=== PATIENT | female | born 1950 | race Caucasian/White ===

== ENCOUNTER 2017-11-01 11:46 | Inpatient (IN) | payer MEDICARE, OTHER ==
[~2017-11-01] VITALS: Ht 165.1 cm; Wt 105.8 kg
[~2017-11-01 11:46] MED LIST: AMLO5; AMLO5 PO; CONEST.3; CONEST.3 PO; ENAL10; ENAL10 PO; GABA300; GABA300 PO; HYDCHL25; HYDCHL25 PO; INSULANI; INSULANI SC; METF500; METF500 PO; OXYACE5T; OXYACE5T PO; PIOG15; PIOG15 PO
[2017-11-01 12:34] LABS: BASOPHILS ABSOLUTE AUTO 0.01 K/mm3 (0.00-0.23); BASOPHILS PERCENT AUTO 0 % (0-2); EOSINOPHILS ABSOLUTE AUTO 0.01 K/mm3 (0.00-0.68); EOSINOPHILS PERCENT AUTO 0 % (0-6); Hematocrit 34.4 % (33.0-51.0); Hemoglobin 10.4 g/dL (11.5-16.0); IMMATURE GRAN ABSOLUTE AUTO 0.01 K/mm3 (0.00-0.10); IMMATURE GRAN PERCENT AUTO 0 % (0-1); LYMPHOCYTES ABSOLUTE AUTO 0.82 K/mm3 (0.84-5.20); LYMPHOCYTES PERCENT AUTO 21 % (21-46); MONOCYTES PERCENT AUTO 5 % (4-13); Mean Corpuscular HGB 25.1 pg (26.0-34.0); Mean Corpuscular HGB Conc 30.2 g/dL (31.5-36.5); Mean Corpuscular Volume 83 fL (80-100); Mean Platelet Volume 10.1 fL (9.1-12.4); NEUTROPHILS ABSOLUTE AUTO 2.81 K/mm3 (1.96-9.15); NEUTROPHILS PERCENT AUTO 73 % (41-73); Platelet Count 87 K/mm3 (150-400); RDW Standard Deviation 56.7 fL (35.1-46.3); Red Blood Cell Count 4.15 M/mm3 (3.80-5.20); White Blood Cell Count 3.86 K/mm3 (4.00-11.30)
[2017-11-01 12:45] LABS: Alanine Aminotransfer (ALT/SGP 49 U/L (12-78); Albumin, Blood 3.2 g/dL (3.4-5.0); Albumin/Globulin Ratio 0.9 (0.8-1.8); Alk Phos 165 U/L (50-136); Anion Gap 7 mmol/L (6-16); Aspartate Aminotrans (AST/SGOT 54 U/L (12-37); Bilirubin, Total 0.5 mg/dL (0.1-1.0); Blood Urea Nitrogen 14 mg/dL (8-24); Bun/Creatinine Ratio 21.1 (12.0-20.0); CO2, Blood 25 mmol/L (21-32); Calcium, Blood 8.5 mg/dL (8.5-10.1); Chloride, Blood 109 mmol/L (98-108); Creatinine, Blood 0.66 mg/dL (0.40-1.00); Globulin, Blood 3.6 g/dL (2.2-4.0); Glomerular Filtration Rate >60 (60-); Glucose, Blood 76 mg/dL (70-99); Potassium, Blood 4.1 mmol/L (3.5-5.5); Sodium, Blood 141 mmol/L (136-145); Total Protein, Blood 6.8 g/dL (6.4-8.2)
[2017-11-01 13:05] LABS: International Normalized Ratio 1.15
[2017-11-01] MEDS ORDERED: LEVSOD50 PO (13:12)
[2017-11-01] MEDS ORDERED: TRIA50 PO (13:13)
[2017-11-01] MEDS ORDERED: Omeprazole20 M1 PO (13:14)
[2017-11-01] MEDS ORDERED: SIMV5 PO (13:15)
[2017-11-01] MEDS ORDERED: ROPI.25 PO (13:15)
[2017-11-01] MEDS ORDERED: BACL10 PO (13:16)
[2017-11-01] MEDS ORDERED: ELIQUIS2.5 MG PO (13:16)
[2017-11-01] MEDS ORDERED: IRON18 MG PO (13:16)
[2017-11-01] MEDS ORDERED: NYSTATIN1 EAC1 TOP (13:17)
[2017-11-01] MEDS ORDERED: DULO30 PO (13:17)
[2017-11-01 14:21] LABS: Appearance, Urine Clear (Clear); Bilirubin, Urine Neg (Neg); Blood, Urine Neg (Neg); Color, Urine Yellow (P-Yellow); Glucose Qualitative, Urine 2+ (Neg); Ketones, Urine Neg (Neg); Leukocyte Esterase, Urine Neg (Neg); Nitrite, Urine Neg (Neg); Protein, Urine Neg (Neg); Specific Gravity, Urine 1.015 (1.003-1.022); Urobilinogen, Urine NORM (Normal); pH, Urine 6.5 (5.0-8.0)
[2017-11-01 19:28] LABS: Magnesium, Blood 2.3 mg/dL (1.6-2.4); Percent Saturation 10.2 % (15.0-50.0)
[2017-11-01 19:50] LABS: Thyroid Stimulating Hormone 2.58 uIU/mL (0.360-4.800)
[2017-11-02 04:44] LABS: BASOPHILS ABSOLUTE AUTO 0.01 K/mm3 (0.00-0.23); BASOPHILS PERCENT AUTO 0 % (0-2); EOSINOPHILS ABSOLUTE AUTO 0.11 K/mm3 (0.00-0.68); EOSINOPHILS PERCENT AUTO 2 % (0-6); Hematocrit 34.1 % (33.0-51.0); Hemoglobin 10.5 g/dL (11.5-16.0); IMMATURE GRAN ABSOLUTE AUTO 0.02 K/mm3 (0.00-0.10); IMMATURE GRAN PERCENT AUTO 0 % (0-1); LYMPHOCYTES ABSOLUTE AUTO 1.44 K/mm3 (0.84-5.20); LYMPHOCYTES PERCENT AUTO 19 % (21-46); MONOCYTES ABSOLUTE AUTO 0.44 K/mm3 (0.16-1.47); MONOCYTES PERCENT AUTO 6 % (4-13); Mean Corpuscular HGB 24.5 pg (26.0-34.0); Mean Corpuscular HGB Conc 30.8 g/dL (31.5-36.5); NEUTROPHILS PERCENT AUTO 73 % (41-73); Platelet Count 116 K/mm3 (150-400); RDW Coefficient Variation 19.5 % (11.7-14.2); RDW Standard Deviation 55.2 fL (35.1-46.3); Red Blood Cell Count 4.28 M/mm3 (3.80-5.20); White Blood Cell Count 7.42 K/mm3 (4.00-11.30)
[2017-11-02 04:51] LABS: Mean Corpuscular Volume 80 fL (80-100)
[2017-11-02 05:15] LABS: Alanine Aminotransfer (ALT/SGP 42 U/L (12-78); Albumin, Blood 3.1 g/dL (3.4-5.0); Albumin/Globulin Ratio 0.9 (0.8-1.8); Alk Phos 157 U/L (50-136); Anion Gap 10 mmol/L (6-16); Aspartate Aminotrans (AST/SGOT 46 U/L (12-37); Bilirubin, Total 0.9 mg/dL (0.1-1.0); Blood Urea Nitrogen 10 mg/dL (8-24); Bun/Creatinine Ratio 13.4 (12.0-20.0); CO2, Blood 24 mmol/L (21-32); Calcium, Blood 8.5 mg/dL (8.5-10.1); Chloride, Blood 107 mmol/L (98-108); Cholesterol 108 mg/dL (50-200); Creatinine, Blood 0.74 mg/dL (0.40-1.00); Globulin, Blood 3.5 g/dL (2.2-4.0); Glomerular Filtration Rate >60 (60-); Glucose, Blood 100 mg/dL (70-99); HDL Cholesterol 53 mg/dL (>39); LDL/HDL RATIO 0.6; Low Density Lipoprotein Chol 31 mg/dL (0-110); Sodium, Blood 141 mmol/L (136-145); Total Protein, Blood 6.6 g/dL (6.4-8.2); Triglycerides 119 mg/dL (30-160); Very Low Density Lipoprot Chol 23 mg/dL (6-32)
[2017-11-02 11:29] LABS: Source, Urine Clean Catch
[2017-11-02 11:38] LABS: Appearance, Urine Clear (Clear); Bilirubin, Urine Neg (Neg); Blood, Urine Neg (Neg); Color, Urine Yellow (P-Yellow); Glucose Qualitative, Urine 1+ (Neg); Ketones, Urine Neg (Neg); Leukocyte Esterase, Urine 2+ (Neg); Nitrite, Urine Neg (Neg); Protein, Urine Neg (Neg); Urobilinogen, Urine NORM (Normal)
[2017-11-02 12:01] LABS: Other Crystals Mod /hpf
[2017-11-02 12:02] LABS: Bacteria Few /hpf; Red Blood Cells, Urine 0-2 /hpf (0-2); Squamous Epithelial Cells Few /hpf (Few)
[2017-11-03 05:47] LABS: BASOPHILS ABSOLUTE AUTO 0.02 K/mm3 (0.00-0.23); BASOPHILS PERCENT AUTO 0 % (0-2); EOSINOPHILS ABSOLUTE AUTO 0.08 K/mm3 (0.00-0.68); EOSINOPHILS PERCENT AUTO 2 % (0-6); Hematocrit 30.9 % (33.0-51.0); Hemoglobin 9.6 g/dL (11.5-16.0); IMMATURE GRAN ABSOLUTE AUTO 0.01 K/mm3 (0.00-0.10); IMMATURE GRAN PERCENT AUTO 0 % (0-1); LYMPHOCYTES ABSOLUTE AUTO 1.41 K/mm3 (0.84-5.20); LYMPHOCYTES PERCENT AUTO 30 % (21-46); MONOCYTES ABSOLUTE AUTO 0.37 K/mm3 (0.16-1.47); MONOCYTES PERCENT AUTO 8 % (4-13); Mean Corpuscular HGB 24.8 pg (26.0-34.0); Mean Corpuscular HGB Conc 31.1 g/dL (31.5-36.5); Mean Corpuscular Volume 80 fL (80-100); Mean Platelet Volume 9.8 fL (9.1-12.4); NEUTROPHILS ABSOLUTE AUTO 2.85 K/mm3 (1.96-9.15); NEUTROPHILS PERCENT AUTO 60 % (41-73); Platelet Count 80 K/mm3 (150-400); RDW Coefficient Variation 19.4 % (11.7-14.2); RDW Standard Deviation 55.5 fL (35.1-46.3); Red Blood Cell Count 3.87 M/mm3 (3.80-5.20); White Blood Cell Count 4.74 K/mm3 (4.00-11.30)
[2017-11-03 06:01] LABS: Anion Gap 7 mmol/L (6-16); Blood Urea Nitrogen 12 mg/dL (8-24); Bun/Creatinine Ratio 13.1 (12.0-20.0); CO2, Blood 26 mmol/L (21-32); Calcium, Blood 8.2 mg/dL (8.5-10.1); Chloride, Blood 108 mmol/L (98-108); Creatinine, Blood 0.92 mg/dL (0.40-1.00); Glomerular Filtration Rate >60 (60-); Glucose, Blood 88 mg/dL (70-99); Potassium, Blood 4.1 mmol/L (3.5-5.5); Sodium, Blood 141 mmol/L (136-145)
[2017-11-04 08:44] LABS: Albumin, Blood 2.9 g/dL (3.4-5.0); Albumin/Globulin Ratio 0.9 (0.8-1.8); Bilirubin, Direct 0.2 mg/dL (0.0-0.3); Bilirubin, Indirect 0.4 mg/dL (0.1-0.7); Bilirubin, Total 0.6 mg/dL (0.1-1.0); Globulin, Blood 3.2 g/dL (2.2-4.0); Total Protein, Blood 6.1 g/dL (6.4-8.2)
[2017-11-05 05:46] LABS: BASOPHILS ABSOLUTE AUTO 0.01 K/mm3 (0.00-0.23); BASOPHILS PERCENT AUTO 0 % (0-2); EOSINOPHILS ABSOLUTE AUTO 0.08 K/mm3 (0.00-0.68); EOSINOPHILS PERCENT AUTO 2 % (0-6); Hematocrit 32.7 % (33.0-51.0); Hemoglobin 10.3 g/dL (11.5-16.0); IMMATURE GRAN ABSOLUTE AUTO 0.01 K/mm3 (0.00-0.10); IMMATURE GRAN PERCENT AUTO 0 % (0-1); LYMPHOCYTES PERCENT AUTO 26 % (21-46); MONOCYTES ABSOLUTE AUTO 0.38 K/mm3 (0.16-1.47); MONOCYTES PERCENT AUTO 8 % (4-13); Mean Corpuscular HGB 24.8 pg (26.0-34.0); Mean Corpuscular HGB Conc 31.5 g/dL (31.5-36.5); Mean Corpuscular Volume 79 fL (80-100); Mean Platelet Volume 10.2 fL (9.1-12.4); NEUTROPHILS ABSOLUTE AUTO 2.88 K/mm3 (1.96-9.15); NEUTROPHILS PERCENT AUTO 63 % (41-73); Platelet Count 101 K/mm3 (150-400); RDW Standard Deviation 53.3 fL (35.1-46.3); Red Blood Cell Count 4.16 M/mm3 (3.80-5.20); White Blood Cell Count 4.56 K/mm3 (4.00-11.30)
[2017-11-05 06:15] LABS: Alanine Aminotransfer (ALT/SGP 31 U/L (12-78); Albumin/Globulin Ratio 0.8 (0.8-1.8); Alk Phos 158 U/L (50-136); Anion Gap 7 mmol/L (6-16); Aspartate Aminotrans (AST/SGOT 28 U/L (12-37); Bilirubin, Total 0.6 mg/dL (0.1-1.0); Blood Urea Nitrogen 14 mg/dL (8-24); Bun/Creatinine Ratio 16.3 (12.0-20.0); CO2, Blood 26 mmol/L (21-32); Calcium, Blood 8.7 mg/dL (8.5-10.1); Chloride, Blood 104 mmol/L (98-108); Creatinine, Blood 0.86 mg/dL (0.40-1.00); Globulin, Blood 3.6 g/dL (2.2-4.0); Glomerular Filtration Rate >60 (60-); Glucose, Blood 194 mg/dL (70-99); Potassium, Blood 4.2 mmol/L (3.5-5.5); Sodium, Blood 137 mmol/L (136-145); Total Protein, Blood 6.6 g/dL (6.4-8.2)
[2017-11-06 05:29] LABS: BASOPHILS ABSOLUTE AUTO 0.01 K/mm3 (0.00-0.23); BASOPHILS PERCENT AUTO 0 % (0-2); EOSINOPHILS ABSOLUTE AUTO 0.08 K/mm3 (0.00-0.68); EOSINOPHILS PERCENT AUTO 1 % (0-6); Hematocrit 31.6 % (33.0-51.0); Hemoglobin 10.1 g/dL (11.5-16.0); IMMATURE GRAN ABSOLUTE AUTO 0.01 K/mm3 (0.00-0.10); IMMATURE GRAN PERCENT AUTO 0 % (0-1); LYMPHOCYTES ABSOLUTE AUTO 1.16 K/mm3 (0.84-5.20); LYMPHOCYTES PERCENT AUTO 20 % (21-46); MONOCYTES ABSOLUTE AUTO 0.46 K/mm3 (0.16-1.47); MONOCYTES PERCENT AUTO 8 % (4-13); Mean Corpuscular HGB 24.8 pg (26.0-34.0); Mean Corpuscular Volume 78 fL (80-100); Mean Platelet Volume 9.6 fL (9.1-12.4); NEUTROPHILS ABSOLUTE AUTO 4.13 K/mm3 (1.96-9.15); NEUTROPHILS PERCENT AUTO 71 % (41-73); Platelet Count 94 K/mm3 (150-400); RDW Coefficient Variation 18.6 % (11.7-14.2); RDW Standard Deviation 52.1 fL (35.1-46.3); Red Blood Cell Count 4.07 M/mm3 (3.80-5.20); White Blood Cell Count 5.85 K/mm3 (4.00-11.30)
[2017-11-06 05:50] LABS: Alanine Aminotransfer (ALT/SGP 30 U/L (12-78); Albumin, Blood 3.2 g/dL (3.4-5.0); Alk Phos 166 U/L (50-136); Anion Gap 9 mmol/L (6-16); Aspartate Aminotrans (AST/SGOT 24 U/L (12-37); Bilirubin, Total 0.5 mg/dL (0.1-1.0); Blood Urea Nitrogen 16 mg/dL (8-24); Bun/Creatinine Ratio 16.9 (12.0-20.0); CO2, Blood 25 mmol/L (21-32); Calcium, Blood 8.7 mg/dL (8.5-10.1); Chloride, Blood 103 mmol/L (98-108); Creatinine, Blood 0.94 mg/dL (0.40-1.00); Globulin, Blood 3.3 g/dL (2.2-4.0); Glomerular Filtration Rate >60 (60-); Glucose, Blood 120 mg/dL (70-99); Sodium, Blood 137 mmol/L (136-145); Total Protein, Blood 6.5 g/dL (6.4-8.2)
[2017-11-08 05:32] LABS: Hematocrit 31.2 % (33.0-51.0); Hemoglobin 9.7 g/dL (11.5-16.0); Mean Corpuscular HGB 25.1 pg (26.0-34.0); Mean Corpuscular HGB Conc 31.1 g/dL (31.5-36.5); Mean Platelet Volume 10.2 fL (9.1-12.4); Platelet Count 89 K/mm3 (150-400); RDW Standard Deviation 55.6 fL (35.1-46.3); Red Blood Cell Count 3.86 M/mm3 (3.80-5.20)
[2017-11-08 05:46] LABS: Anion Gap 7 mmol/L (6-16); Blood Urea Nitrogen 15 mg/dL (8-24); Bun/Creatinine Ratio 21.8 (12.0-20.0); CO2, Blood 27 mmol/L (21-32); Calcium, Blood 8.6 mg/dL (8.5-10.1); Chloride, Blood 103 mmol/L (98-108); Creatinine, Blood 0.69 mg/dL (0.40-1.00); Glomerular Filtration Rate >60 (60-); Glucose, Blood 167 mg/dL (70-99); Potassium, Blood 4.2 mmol/L (3.5-5.5); Sodium, Blood 137 mmol/L (136-145)
[2017-11-08 06:01] LABS: Mean Corpuscular Volume 81 fL (80-100)
[2017-11-08] MEDS ORDERED: ARTIFICIAL TEAR15 ML RIGHTEYE (11:43)
[2017-11-08] MEDS ORDERED: CALCIUM WITH V1 EACH PO (11:44)
[2017-11-08] MEDS ORDERED: INSDET100 SC (11:45)
[2017-11-08] MEDS ORDERED: Novolog100 UNIT/2 SC (11:46)
[2017-11-08] MEDS ORDERED: LOSA50 PO (11:46)
[2017-11-08] MEDS ORDERED: PROBIOTIC1 EACH PO (11:48)
[2017-11-09 07:14] LABS: HBSAG SCREEN Negative (Negative); HEP A AB, IGM Negative (Negative); HEP B CORE AB, IGM Negative (Negative); HEP C VIRUS AB <0.1 (0.0-0.9)
[2017-11-09 11:07] LABS: HBSAG SCREEN Negative (Negative); HEP A AB, IGM Negative (Negative); HEP B CORE AB, TOT Negative (Negative); HEP C VIRUS AB <0.1 (0.0-0.9)
[2017-11-11 08:19] LABS: FREE INSULIN 16 uU/mL (.); TOTAL INSULIN 19 uU/mL (.)
== END 2017-11-08 15:01 | DRG 638 ==
LOC: ER 11:46 → MEDS 11:47 → ER 17:09 → MEDS 17:09 → ENPENDDIS 11-08 11:00 → MEDS 11-08 15:01
PROVIDERS: Emergency Medicine; Internal Medicine
DX: E11.649 Type 2 diabetes mellitus with hypoglycemia without coma (principal); N39.0 Urinary tract infection, site not specified; M80.08XA Age-related osteoporosis with current pathological fracture, vertebra(e), initial encounter for fracture; D61.818 Other pancytopenia; Z79.4 Long term (current) use of insulin; H10.9 Unspecified conjunctivitis; I10 Essential (primary) hypertension; E03.9 Hypothyroidism, unspecified; D64.9 Anemia, unspecified; R01.1 Cardiac murmur, unspecified; K74.60 Unspecified cirrhosis of liver; B96.20 Unspecified Escherichia coli [E. coli] as the cause of diseases classified elsewhere; B96.1 Klebsiella pneumoniae [K. pneumoniae] as the cause of diseases classified elsewhere; I35.0 Nonrheumatic aortic (valve) stenosis; R19.7 Diarrhea, unspecified; H10.31 Unspecified acute conjunctivitis, right eye; E78.5 Hyperlipidemia, unspecified
CPT/HCPCS: 36415; 70450; 71046; 73502; 74177; 80048; 80053; 80061; 80074; 80076; 81001; 81003; 82140; 82607; 82728; 82746; 82947; 83036; 83525; 83527; 83540; 83550; 83735; 83880; 84443; 85025; 85027; 85610; 85651; 86704; 86708; 86803; 87077; 87086; 87186; 87340; 87493; 93005; 93010; 93306; 96361; 96365; 96366; 96374; 96375; 96376; 97110; 97116; 97161; 97530; 99285; G0378; G8978; G8979; J0360; J0696; J1815; J2185; J2916; J7030; J7070; J7120; P9612; Q9967

== ENCOUNTER 2017-11-09 17:21 | Day surgery (SDC) | END 2017-11-09 18:43 | disposition home or self-care (01) ==

== ENCOUNTER 2018-01-10 12:53 | Observation (INO) | payer MEDICARE, OTHER ==
[~2018-01-10] VITALS: Ht 152.4 cm; Wt 95.0 kg
[~2018-01-10 12:53] MED LIST changes: +ARTIFICIAL TEAR15 ML RIGHTEYE; +BACL10 PO; +CALCIUM WITH V1 EACH PO; +DULO60 PO; +ELIQUIS2.5 MG PO; +Ferrous Sulfat325 M2 PO; +INSDET100 SC; +LEVSOD50 PO; +LOSA50 PO; +NYSTATIN1 EAC1 TOP; +Novolog100 UNIT/2 SC; +Omeprazole20 M1 PO; +PROBIOTIC1 EACH PO; +ROPI.25 PO; +SIMV5 PO; +TRIA50 PO
[2018-01-10 15:07] LABS: BASOPHILS ABSOLUTE AUTO 0.01 K/mm3 (0.00-0.23); BASOPHILS PERCENT AUTO 0 % (0-2); EOSINOPHILS ABSOLUTE AUTO 0.05 K/mm3 (0.00-0.68); EOSINOPHILS PERCENT AUTO 1 % (0-6); Hematocrit 33.1 % (33.0-51.0); Hemoglobin 10.3 g/dL (11.5-16.0); IMMATURE GRAN ABSOLUTE AUTO 0.01 K/mm3 (0.00-0.10); IMMATURE GRAN PERCENT AUTO 0 % (0-1); LYMPHOCYTES ABSOLUTE AUTO 1.26 K/mm3 (0.84-5.20); LYMPHOCYTES PERCENT AUTO 34 % (21-46); MONOCYTES ABSOLUTE AUTO 0.26 K/mm3 (0.16-1.47); MONOCYTES PERCENT AUTO 7 % (4-13); Mean Corpuscular HGB 26.5 pg (26.0-34.0); Mean Corpuscular HGB Conc 31.1 g/dL (31.5-36.5); Mean Corpuscular Volume 85 fL (80-100); Mean Platelet Volume 10.6 fL (9.1-12.4); NEUTROPHILS ABSOLUTE AUTO 2.09 K/mm3 (1.96-9.15); NEUTROPHILS PERCENT AUTO 57 % (41-73); Platelet Count 123 K/mm3 (150-400); RDW Coefficient Variation 16.6 % (11.7-14.2); RDW Standard Deviation 50.4 fL (35.1-46.3); Red Blood Cell Count 3.88 M/mm3 (3.80-5.20); White Blood Cell Count 3.68 K/mm3 (4.00-11.30)
[2018-01-10] MEDS ORDERED: Simvastatin20 MG PO (15:15)
[2018-01-10] MEDS ORDERED: GABA300 PO (15:17)
[2018-01-10] MEDS ORDERED: BACL10 PO (15:17)
[2018-01-10 15:24] LABS: Alanine Aminotransfer (ALT/SGP 29 U/L (12-78); Albumin, Blood 3.6 g/dL (3.4-5.0); Albumin/Globulin Ratio 0.9 (0.8-1.8); Alk Phos 164 U/L (50-136); Anion Gap 7 mmol/L (6-16); Aspartate Aminotrans (AST/SGOT 31 U/L (12-37); Bilirubin, Total 0.4 mg/dL (0.1-1.0); Blood Urea Nitrogen 20 mg/dL (8-24); Bun/Creatinine Ratio 21.5 (12.0-20.0); CO2, Blood 27 mmol/L (21-32); Calcium, Blood 8.6 mg/dL (8.5-10.1); Chloride, Blood 107 mmol/L (98-108); Creatinine, Blood 0.93 mg/dL (0.40-1.00); Globulin, Blood 3.8 g/dL (2.2-4.0); Glomerular Filtration Rate >60 (60-); Glucose, Blood 113 mg/dL (70-99); Potassium, Blood 4.1 mmol/L (3.5-5.5); Sodium, Blood 141 mmol/L (136-145); Total Protein, Blood 7.4 g/dL (6.4-8.2)
[2018-01-11 04:43] LABS: BASOPHILS ABSOLUTE AUTO 0.01 K/mm3 (0.00-0.23); BASOPHILS PERCENT AUTO 0 % (0-2); EOSINOPHILS ABSOLUTE AUTO 0.06 K/mm3 (0.00-0.68); EOSINOPHILS PERCENT AUTO 2 % (0-6); Hematocrit 31.2 % (33.0-51.0); Hemoglobin 9.8 g/dL (11.5-16.0); IMMATURE GRAN ABSOLUTE AUTO 0.01 K/mm3 (0.00-0.10); IMMATURE GRAN PERCENT AUTO 0 % (0-1); LYMPHOCYTES ABSOLUTE AUTO 1.09 K/mm3 (0.84-5.20); LYMPHOCYTES PERCENT AUTO 35 % (21-46); MONOCYTES ABSOLUTE AUTO 0.29 K/mm3 (0.16-1.47); MONOCYTES PERCENT AUTO 9 % (4-13); Mean Corpuscular HGB 26.9 pg (26.0-34.0); Mean Corpuscular HGB Conc 31.4 g/dL (31.5-36.5); Mean Corpuscular Volume 86 fL (80-100); Mean Platelet Volume 10.6 fL (9.1-12.4); NEUTROPHILS ABSOLUTE AUTO 1.67 K/mm3 (1.96-9.15); NEUTROPHILS PERCENT AUTO 53 % (41-73); Platelet Count 107 K/mm3 (150-400); RDW Coefficient Variation 16.3 % (11.7-14.2); RDW Standard Deviation 50.8 fL (35.1-46.3); Red Blood Cell Count 3.64 M/mm3 (3.80-5.20); White Blood Cell Count 3.13 K/mm3 (4.00-11.30)
[2018-01-11 05:01] LABS: Anion Gap 8 mmol/L (6-16); Blood Urea Nitrogen 17 mg/dL (8-24); Bun/Creatinine Ratio 19.7 (12.0-20.0); CO2, Blood 27 mmol/L (21-32); Calcium, Blood 8.3 mg/dL (8.5-10.1); Chloride, Blood 105 mmol/L (98-108); Creatinine, Blood 0.86 mg/dL (0.40-1.00); Glomerular Filtration Rate >60 (60-); Glucose, Blood 247 mg/dL (70-99); Potassium, Blood 4.2 mmol/L (3.5-5.5); Sodium, Blood 140 mmol/L (136-145)
[2018-01-11] MEDS ORDERED: CEPH500 PO (11:59)
[2018-01-11] MEDS ORDERED: ACET325 PO (11:59)
== END 2018-01-11 14:45 | disposition home or self-care (01) ==
LOC: ER 12:53 → MEDS 12:54
PROVIDERS: Emergency Medicine; Hospitalist
DX: E10.628 Type 1 diabetes mellitus with other skin complications (principal); L03.115 Cellulitis of right lower limb; E03.9 Hypothyroidism, unspecified; D64.9 Anemia, unspecified; I10 Essential (primary) hypertension; E78.5 Hyperlipidemia, unspecified; E10.42 Type 1 diabetes mellitus with diabetic polyneuropathy; D50.9 Iron deficiency anemia, unspecified
CPT/HCPCS: 36415; 73590; 80048; 80053; 82947; 83605; 85025; 85651; 86140; 87040; 87070; 87075; 87077; 87147; 87186; 87205; 96365; 96372; 96376; 99284; G0378; J0690; J1650; J7030

== ENCOUNTER → 2018-02-03 | Outpatient (CLI) | payer MEDICARE, OTHER ==
[~2018-02-03] MED LIST changes: +ACET325 PO; +CEPH500 PO; +Simvastatin20 MG PO
== END ==
LOC: LAB 12:35 → LAB SHORT 12:35
DX: L03.116 Cellulitis of left lower limb (principal); S82.292D Other fracture of shaft of left tibia, subsequent encounter for closed fracture with routine healing
CPT/HCPCS: 87070; 87075; 87077; 87147; 87186; 87205

== ENCOUNTER 2018-02-12 18:08 | Emergency (ER) | payer MEDICARE, OTHER ==
[~2018-02-12] VITALS: Ht 152.4 cm; Wt 70.3 kg
[~2018-02-12 18:08] MED LIST changes: +Augmentin 875-1 EACH PO; +INSR10I SC; +LEVEMIR FL100 UNIT/1 SC
[2018-02-12] MEDS ORDERED: ELIQUIS2.5 MG (20:02)
== END 2018-02-12 20:05 | disposition home or self-care (01) ==
LOC: ER 18:08
DX: T81.89XA Other complications of procedures, not elsewhere classified, initial encounter (principal); E11.9 Type 2 diabetes mellitus without complications; Z88.8 Allergy status to other drugs, medicaments and biological substances; Z79.899 Other long term (current) drug therapy; Z79.4 Long term (current) use of insulin
CPT/HCPCS: 99282

== ENCOUNTER 2018-02-28 15:00 | Inpatient (IN) | payer MEDICARE, OTHER ==
[~2018-02-28] VITALS: Ht 160 cm; Wt 99.4 kg
[~2018-02-28 15:00] MED LIST changes: +ELIQUIS5 MG PO
[2018-02-28] MEDS ORDERED: ROPI2 PO (15:44)
[2018-02-28] MEDS ORDERED: ELIQUIS2.5 MG PO (15:44)
[2018-02-28] MEDS ORDERED: LOSA50 PO (15:44)
[2018-02-28] MEDS ORDERED: LEVSOD75 PO (15:47)
[2018-02-28] MEDS ORDERED: FAMO20 (15:48)
[2018-02-28] MEDS ORDERED: BACL10 PO (15:48)
[2018-02-28] MEDS ORDERED: BACL10 (15:49)
[2018-02-28 16:02] LABS: BASOPHILS ABSOLUTE AUTO 0.02 K/mm3 (0.00-0.23); BASOPHILS PERCENT AUTO 0 % (0-2); EOSINOPHILS ABSOLUTE AUTO 0.01 K/mm3 (0.00-0.68); EOSINOPHILS PERCENT AUTO 0 % (0-6); Hematocrit 32.5 % (33.0-51.0); Hemoglobin 10.5 g/dL (11.5-16.0); IMMATURE GRAN ABSOLUTE AUTO 0.06 K/mm3 (0.00-0.10); IMMATURE GRAN PERCENT AUTO 1 % (0-1); LYMPHOCYTES ABSOLUTE AUTO 0.66 K/mm3 (0.84-5.20); LYMPHOCYTES PERCENT AUTO 7 % (21-46); MONOCYTES ABSOLUTE AUTO 0.63 K/mm3 (0.16-1.47); MONOCYTES PERCENT AUTO 6 % (4-13); Mean Corpuscular HGB 27.3 pg (26.0-34.0); Mean Corpuscular HGB Conc 32.3 g/dL (31.5-36.5); Mean Corpuscular Volume 84 fL (80-100); Mean Platelet Volume 11.3 fL (9.1-12.4); NEUTROPHILS PERCENT AUTO 86 % (41-73); Platelet Count 90 K/mm3 (150-400); RDW Coefficient Variation 15.5 % (11.7-14.2); RDW Standard Deviation 47.1 fL (35.1-46.3); Red Blood Cell Count 3.85 M/mm3 (3.80-5.20); White Blood Cell Count 9.98 K/mm3 (4.00-11.30)
[2018-02-28 16:13] LABS: International Normalized Ratio 1.25; Prothrombin Time Results 12.7 Sec (9.7-11.5)
[2018-02-28 16:15] LABS: Alanine Aminotransfer (ALT/SGP 42 U/L (12-78); Albumin/Globulin Ratio 1.1 (0.8-1.8); Alk Phos 150 U/L (50-136); Anion Gap 8 mmol/L (6-16); Aspartate Aminotrans (AST/SGOT 43 U/L (12-37); Blood Urea Nitrogen 29 mg/dL (8-24); Bun/Creatinine Ratio 26.6 (12.0-20.0); CO2, Blood 26 mmol/L (21-32); Calcium, Blood 8.8 mg/dL (8.5-10.1); Chloride, Blood 95 mmol/L (98-108); Creatinine, Blood 1.09 mg/dL (0.40-1.00); Ethanol (Alcohol), Blood, Med <3 mg/dL; Globulin, Blood 3.8 g/dL (2.2-4.0); Glomerular Filtration Rate 53 (60-); Glucose, Blood 234 mg/dL (70-99); Sodium, Blood 129 mmol/L (136-145); Total Protein, Blood 7.8 g/dL (6.4-8.2)
[2018-02-28 17:29] LABS: U Amphetamine Screen Not Detected; U Barbituate Screen Not Detected; U Benzodiazapine Screen Not Detected; U Buprenorphine Screen Not Detected; U Cannabinoids Screen Not Detected; U Cocaine Screen Not Detected; U Methadone Screen Not Detected; U Methamphetamine Screen Not Detected; U Opiates Screen Not Detected; U Oxycodone Screen Not Detected; U Phencyclidine Screen Not Detected; U Propoxyphene Screen Not Detected
[2018-02-28] MEDS ORDERED: Nystatin15 GM TOP (23:07)
[2018-02-28] MEDS ORDERED: POTCHL20ER (23:08)
[2018-02-28] MEDS ORDERED: TRIAMTERENE HCTZ (23:08)
[2018-02-28] MEDS ORDERED: ONE TOUCH VERI1 EAC6 (23:09)
[2018-02-28] MEDS ORDERED: OMEPRAZOLE DR 20 MG (23:09)
[2018-02-28] MEDS ORDERED: Amox Tr-K Clv1 EAC2 PO (23:09)
[2018-02-28] MEDS ORDERED: CLON.5 (23:10)
[2018-02-28] MEDS ORDERED: Ferrous Sulfat325 MG (23:10)
[2018-02-28] MEDS ORDERED: CEPH500 (23:11)
[2018-02-28] MEDS ORDERED: INSU100I6 (23:11)
[2018-02-28] MEDS ORDERED: INSULANPEN (23:12)
[2018-02-28] MEDS ORDERED: Glucagon Emergen1 MG (23:12)
[2018-03-01 05:23] LABS: BASOPHILS ABSOLUTE AUTO 0.01 K/mm3 (0.00-0.23); BASOPHILS PERCENT AUTO 0 % (0-2); EOSINOPHILS PERCENT AUTO 0 % (0-6); Hematocrit 28.1 % (33.0-51.0); Hemoglobin 9.5 g/dL (11.5-16.0); IMMATURE GRAN ABSOLUTE AUTO 0.03 K/mm3 (0.00-0.10); IMMATURE GRAN PERCENT AUTO 1 % (0-1); LYMPHOCYTES ABSOLUTE AUTO 0.88 K/mm3 (0.84-5.20); LYMPHOCYTES PERCENT AUTO 13 % (21-46); MONOCYTES PERCENT AUTO 8 % (4-13); Mean Corpuscular HGB 27.4 pg (26.0-34.0); Mean Corpuscular HGB Conc 33.8 g/dL (31.5-36.5); NEUTROPHILS ABSOLUTE AUTO 5.18 K/mm3 (1.96-9.15); NEUTROPHILS PERCENT AUTO 78 % (41-73); RDW Coefficient Variation 15.8 % (11.7-14.2); RDW Standard Deviation 46.5 fL (35.1-46.3); Red Blood Cell Count 3.47 M/mm3 (3.80-5.20)
[2018-03-01 05:33] LABS: Calcium, Blood 7.6 mg/dL (8.5-10.1); Creatinine, Blood 1.16 mg/dL (0.40-1.00); Potassium, Blood 4.5 mmol/L (3.5-5.5)
[2018-03-01 05:45] LABS: Mean Platelet Volume 11.9 fL (9.1-12.4); Platelet Count 63 K/mm3 (150-400)
[2018-03-01 05:46] LABS: Mean Corpuscular Volume 81 fL (80-100)
[2018-03-01 10:22] LABS: Source, Urine Catheter
[2018-03-01 10:29] LABS: Bilirubin, Urine Neg (Neg); Blood, Urine 3+ (Neg); Glucose Qualitative, Urine 1+ (Neg); Ketones, Urine Neg (Neg); Leukocyte Esterase, Urine 3+ (Neg); Nitrite, Urine Neg (Neg); Protein, Urine 1+ (Neg); Urobilinogen, Urine NORM (Normal)
[2018-03-01 10:53] LABS: Appearance, Urine Hazy (Clear); Color, Urine Yellow (P-Yellow)
[2018-03-01 10:54] LABS: Squamous Epithelial Cells Mod /hpf (Few); White Blood Cells, Urine 25-50 /hpf (0-5)
[2018-03-01 10:55] LABS: Bacteria Few /hpf; Red Blood Cells, Urine 25-50 /hpf (0-2)
[2018-03-02 05:04] LABS: Hematocrit 27.7 % (33.0-51.0); Hemoglobin 9.1 g/dL (11.5-16.0); Mean Corpuscular HGB 28.2 pg (26.0-34.0); Mean Corpuscular HGB Conc 32.9 g/dL (31.5-36.5); Mean Platelet Volume 11.5 fL (9.1-12.4); Platelet Count 70 K/mm3 (150-400); RDW Coefficient Variation 15.5 % (11.7-14.2); RDW Standard Deviation 48.7 fL (35.1-46.3); Red Blood Cell Count 3.23 M/mm3 (3.80-5.20); White Blood Cell Count 5.42 K/mm3 (4.00-11.30)
[2018-03-02 05:17] LABS: Mean Corpuscular Volume 86 fL (80-100)
[2018-03-02 05:21] LABS: Calcium, Blood 7.7 mg/dL (8.5-10.1); Potassium, Blood 4.1 mmol/L (3.5-5.5)
[2018-03-02 05:47] LABS: BAND PERCENT MAN 17 % (0-8); BASOPHILS ABSOLUTE MAN 0.05 K/mm3 (0.00-0.23); BASOPHILS PERCENT MAN 1 % (0-2); EOSINOPHILS ABSOLUTE MAN 0.05 K/mm3 (0.00-0.68); EOSINOPHILS PERCENT MAN 1 % (0-6); LYMPHOCYTES ABSOLUTE MAN 0.75 K/mm3 (0.84-5.20); LYMPHOCYTES PERCENT MAN 14 % (21-46); MONOCYTES ABSOLUTE MAN 0.16 K/mm3 (0.16-1.47); MONOCYTES PERCENT MAN 3 % (4-13); NEUTROPHILS ABSOLUTE MAN 4.39 K/mm3 (1.96-9.15); SEG NEUTROPHILS PERCENT MAN 64 % (41-73); TOTAL CELLS COUNTED 100
[2018-03-02 16:12] LABS: Sodium, Urine, Random 62 mmol/L (20-110)
[2018-03-02 21:41] LABS: Osmolality, Urine 537 mos/kg (15-1400)
[2018-03-03 04:55] LABS: BASOPHILS ABSOLUTE AUTO 0.02 K/mm3 (0.00-0.23); BASOPHILS PERCENT AUTO 1 % (0-2); EOSINOPHILS ABSOLUTE AUTO 0.08 K/mm3 (0.00-0.68); EOSINOPHILS PERCENT AUTO 2 % (0-6); Hematocrit 27.5 % (33.0-51.0); Hemoglobin 9.1 g/dL (11.5-16.0); IMMATURE GRAN ABSOLUTE AUTO 0.01 K/mm3 (0.00-0.10); IMMATURE GRAN PERCENT AUTO 0 % (0-1); LYMPHOCYTES ABSOLUTE AUTO 1.35 K/mm3 (0.84-5.20); LYMPHOCYTES PERCENT AUTO 30 % (21-46); MONOCYTES PERCENT AUTO 11 % (4-13); Mean Corpuscular HGB 27.5 pg (26.0-34.0); Mean Corpuscular HGB Conc 33.1 g/dL (31.5-36.5); Mean Platelet Volume 11.4 fL (9.1-12.4); NEUTROPHILS ABSOLUTE AUTO 2.48 K/mm3 (1.96-9.15); NEUTROPHILS PERCENT AUTO 56 % (41-73); Platelet Count 72 K/mm3 (150-400); RDW Coefficient Variation 15.1 % (11.7-14.2); RDW Standard Deviation 46.6 fL (35.1-46.3); Red Blood Cell Count 3.31 M/mm3 (3.80-5.20); White Blood Cell Count 4.44 K/mm3 (4.00-11.30)
[2018-03-03 05:03] LABS: Mean Corpuscular Volume 83 fL (80-100)
[2018-03-03 05:33] LABS: Anion Gap 7 mmol/L (6-16); Blood Urea Nitrogen 18 mg/dL (8-24); Bun/Creatinine Ratio 19.3 (12.0-20.0); CO2, Blood 27 mmol/L (21-32); Calcium, Blood 8.2 mg/dL (8.5-10.1); Chloride, Blood 98 mmol/L (98-108); Creatinine, Blood 0.93 mg/dL (0.40-1.00); Glomerular Filtration Rate >60 (60-); Glucose, Blood 201 mg/dL (70-99); Sodium, Blood 132 mmol/L (136-145)
[2018-03-03 05:48] LABS: Osmolality, Serum 282 mos/KG (275-300)
== END 2018-03-03 16:00 | disposition home health service (06) | DRG 871 ==
LOC: ER 15:00 → ERHOLD 18:12 → MEDS 21:00 → ENPENDDIS 03-03 07:13 → EDPENDDIS 03-03 07:13 → MEDS 03-03 16:00
PROVIDERS: Internal Medicine; Physician Assistant
DX: A41.9 Sepsis, unspecified organism (principal); J18.9 Pneumonia, unspecified organism; G92 Toxic encephalopathy; E87.1 Hypo-osmolality and hyponatremia; N39.0 Urinary tract infection, site not specified; L03.116 Cellulitis of left lower limb; D64.9 Anemia, unspecified; K74.60 Unspecified cirrhosis of liver; Z74.09 Other reduced mobility; I10 Essential (primary) hypertension; E03.9 Hypothyroidism, unspecified; E78.5 Hyperlipidemia, unspecified; K21.9 Gastro-esophageal reflux disease without esophagitis; E11.40 Type 2 diabetes mellitus with diabetic neuropathy, unspecified; R65.20 Severe sepsis without septic shock; Z88.8 Allergy status to other drugs, medicaments and biological substances; Z79.4 Long term (current) use of insulin; Z79.899 Other long term (current) drug therapy
CPT/HCPCS: 36415; 51702; 70450; 71045; 73502; 80048; 80053; 81001; 82140; 82947; 83605; 83930; 83935; 84145; 84300; 85025; 85610; 87086; 93005; 93010; 96361; 96365; 96375; 99285-25; C9113; G0480; J0696; J1885; J1956; J3480; J7030; J7040

== ENCOUNTER 2018-03-04 14:43 | Emergency (ER) | payer MEDICARE, OTHER ==
[~2018-03-04] VITALS: Ht 152.4 cm; Wt 88.5 kg
[~2018-03-04 14:43] MED LIST changes: +Amox Tr-K Clv1 EAC2 PO; +BACL10; +CEPH500; +CLON.5; +FAMO20; +Ferrous Sulfat325 MG; +Glucagon Emergen1 MG; +INSU100I6; +INSULANPEN; +LEVSOD75 PO; +Nystatin15 GM TOP; +OMEPRAZOLE DR 20 MG; +ONE TOUCH VERI1 EAC6; +POTCHL20ER; +ROPI2 PO; +TRIAMTERENE HCTZ
== END 2018-03-04 16:00 | disposition home or self-care (01) ==
LOC: ER 14:43
DX: Z48.01 Encounter for change or removal of surgical wound dressing (principal); E11.9 Type 2 diabetes mellitus without complications; Z88.8 Allergy status to other drugs, medicaments and biological substances; Z79.899 Other long term (current) drug therapy; Z79.4 Long term (current) use of insulin; Z79.01 Long term (current) use of anticoagulants
CPT/HCPCS: 99282

== ENCOUNTER 2018-03-09 10:35 | Emergency (ER) | payer MEDICARE, OTHER ==
[~2018-03-09] VITALS: Ht 152.4 cm; Wt 88.5 kg
[~2018-03-09 10:35] MED LIST changes: -ELIQUIS5 MG PO
[2018-03-09 12:35] LABS: Alanine Aminotransfer (ALT/SGP 29 U/L (12-78); Albumin, Blood 3.4 g/dL (3.4-5.0); Albumin/Globulin Ratio 0.9 (0.8-1.8); Alk Phos 151 U/L (50-136); Anion Gap 9 mmol/L (6-16); Aspartate Aminotrans (AST/SGOT 40 U/L (12-37); Blood Urea Nitrogen 17 mg/dL (8-24); Bun/Creatinine Ratio 19.9 (12.0-20.0); CO2, Blood 25 mmol/L (21-32); Calcium, Blood 8.1 mg/dL (8.5-10.1); Chloride, Blood 98 mmol/L (98-108); Creatinine, Blood 0.86 mg/dL (0.40-1.00); Globulin, Blood 3.8 g/dL (2.2-4.0); Glomerular Filtration Rate >60 (60-); Glucose, Blood 320 mg/dL (70-99); Potassium, Blood 5.3 mmol/L (3.5-5.5); Sodium, Blood 132 mmol/L (136-145); Total Protein, Blood 7.2 g/dL (6.4-8.2)
[2018-03-09 12:52] LABS: BASOPHILS ABSOLUTE AUTO 0.03 K/mm3 (0.00-0.23); BASOPHILS PERCENT AUTO 0 % (0-2); EOSINOPHILS ABSOLUTE AUTO 0.03 K/mm3 (0.00-0.68); EOSINOPHILS PERCENT AUTO 0 % (0-6); Hematocrit 31.1 % (33.0-51.0); Hemoglobin 9.5 g/dL (11.5-16.0); IMMATURE GRAN ABSOLUTE AUTO 0.04 K/mm3 (0.00-0.10); IMMATURE GRAN PERCENT AUTO 1 % (0-1); LYMPHOCYTES ABSOLUTE AUTO 1.06 K/mm3 (0.84-5.20); LYMPHOCYTES PERCENT AUTO 14 % (21-46); MONOCYTES ABSOLUTE AUTO 0.59 K/mm3 (0.16-1.47); MONOCYTES PERCENT AUTO 8 % (4-13); Mean Corpuscular HGB Conc 30.5 g/dL (31.5-36.5); NEUTROPHILS ABSOLUTE AUTO 5.81 K/mm3 (1.96-9.15); NEUTROPHILS PERCENT AUTO 77 % (41-73); Platelet Count 125 K/mm3 (150-400); RDW Coefficient Variation 15.4 % (11.7-14.2); RDW Standard Deviation 48.8 fL (35.1-46.3); Red Blood Cell Count 3.52 M/mm3 (3.80-5.20); White Blood Cell Count 7.56 K/mm3 (4.00-11.30)
[2018-03-09 12:53] LABS: Mean Corpuscular Volume 88 fL (80-100)
[2018-03-09 14:25] LABS: Source, Urine Clean Catch
[2018-03-09 14:35] LABS: Appearance, Urine Clear (Clear); Bilirubin, Urine Neg (Neg); Blood, Urine Neg (Neg); Color, Urine Yellow (P-Yellow); Glucose Qualitative, Urine 4+ (Neg); Ketones, Urine Neg (Neg); Leukocyte Esterase, Urine Neg (Neg); Nitrite, Urine Neg (Neg); Protein, Urine 1+ (Neg); Specific Gravity, Urine 1.015 (1.003-1.022); Urobilinogen, Urine NORM (Normal)
== END 2018-03-09 18:39 | disposition home or self-care (01) ==
LOC: ER 10:35
PROVIDERS: Emergency Medicine
DX: E11.65 Type 2 diabetes mellitus with hyperglycemia (principal); D64.9 Anemia, unspecified; E87.1 Hypo-osmolality and hyponatremia; Z88.8 Allergy status to other drugs, medicaments and biological substances; Z79.899 Other long term (current) drug therapy; Z79.4 Long term (current) use of insulin
CPT/HCPCS: 36415; 80053; 85025; 99285; P9612

== ENCOUNTER 2018-03-13 08:58 | Emergency (ER) | payer MEDICARE, OTHER ==
[~2018-03-13] VITALS: Ht 152.4 cm; Wt 86.2 kg
[2018-03-13] MEDS ORDERED: BACL10 PO (09:10)
[2018-03-13] MEDS ORDERED: Dyazide 37.5-21 EACH PO (09:12)
[2018-03-13] MEDS ORDERED: POTCHL20ER PO (09:16)
[2018-03-13] MEDS ORDERED: FAMO20 PO (09:18)
[2018-03-13] MEDS ORDERED: GABA300 PO (09:19)
[2018-03-13] MEDS ORDERED: Ferrous Sulfat325 M2 PO (09:19)
[2018-03-13] MEDS ORDERED: TRAM50 PO (09:20)
[2018-03-13] MEDS ORDERED: CLON.5 PO (09:20)
[2018-03-13 11:19] LABS: BASOPHILS ABSOLUTE AUTO 0.04 K/mm3 (0.00-0.23); BASOPHILS PERCENT AUTO 0 % (0-2); EOSINOPHILS PERCENT AUTO 1 % (0-6); Hematocrit 29.7 % (33.0-51.0); Hemoglobin 9.5 g/dL (11.5-16.0); IMMATURE GRAN ABSOLUTE AUTO 0.03 K/mm3 (0.00-0.10); IMMATURE GRAN PERCENT AUTO 0 % (0-1); LYMPHOCYTES ABSOLUTE AUTO 1.21 K/mm3 (0.84-5.20); LYMPHOCYTES PERCENT AUTO 11 % (21-46); MONOCYTES ABSOLUTE AUTO 0.63 K/mm3 (0.16-1.47); MONOCYTES PERCENT AUTO 6 % (4-13); Mean Corpuscular HGB 27.5 pg (26.0-34.0); Mean Corpuscular Volume 86 fL (80-100); Mean Platelet Volume 10.5 fL (9.1-12.4); NEUTROPHILS PERCENT AUTO 82 % (41-73); Platelet Count 133 K/mm3 (150-400); RDW Coefficient Variation 15.7 % (11.7-14.2); RDW Standard Deviation 48.7 fL (35.1-46.3); Red Blood Cell Count 3.46 M/mm3 (3.80-5.20); White Blood Cell Count 11.11 K/mm3 (4.00-11.30)
[2018-03-13 11:32] LABS: International Normalized Ratio 1.19; Prothrombin Time Results 12.1 Sec (9.7-11.5)
[2018-03-13 11:46] LABS: Albumin, Blood 2.9 g/dL (3.4-5.0); Albumin/Globulin Ratio 0.8 (0.8-1.8); Bilirubin, Total 0.5 mg/dL (0.1-1.0); Bun/Creatinine Ratio 18.6 (12.0-20.0); Calcium, Blood 7.9 mg/dL (8.5-10.1); Creatinine, Blood 1.4 mg/dL (0.40-1.00); Globulin, Blood 3.6 g/dL (2.2-4.0); Potassium, Blood 4.8 mmol/L (3.5-5.5); Total Protein, Blood 6.5 g/dL (6.4-8.2)
[2018-03-17] MEDS ORDERED: LEVSOD88 PO (12:56)
[2018-03-17] MEDS ORDERED: NYST100000 (13:00)
[2018-03-17] MEDS ORDERED: SACC250C (13:01)
[2018-03-17] MEDS ORDERED: VANC125 PO (13:03)
[2018-03-17] MEDS ORDERED: Humalog100 UNIT/1 (13:04)
== END 2018-03-13 14:10 | disposition home or self-care (01) ==
LOC: ER 08:58
PROVIDERS: Nurse Practitioner Family
DX: R53.1 Weakness (principal); E11.9 Type 2 diabetes mellitus without complications; E03.9 Hypothyroidism, unspecified; K21.9 Gastro-esophageal reflux disease without esophagitis; E87.6 Hypokalemia; Z88.8 Allergy status to other drugs, medicaments and biological substances; Z79.899 Other long term (current) drug therapy; Z79.4 Long term (current) use of insulin; Z79.01 Long term (current) use of anticoagulants
CPT/HCPCS: 36415; 70450; 80053; 82947; 85025; 85610; 93005; 93010; 96360; 99284-25; J7030

== ENCOUNTER 2018-06-16 14:48 | Day surgery (SDC) | payer MEDICARE, OTHER ==
[~2018-06-16 14:48] MED LIST changes: +CEFAZOLIN2 GM/50 ML IV; +CHOL10002 PO; +CLON.5 PO; +CULTURELLE PRO1 EACH PO; +Dyazide 37.5-21 EACH PO; +ELIQUIS5 MG PO; +FAMO20 PO; +FURO40 PO; +Humalog100 UNIT/1; +INSULANPEN SC; +LEVSOD100 PO; +NYST100000; +POTCHL10ER PO; +Pedi-Dri 100,0060 GM TOP; +SACC250C; +TRAM50 PO; +TYLENOL325 MG PO; +VANC125 PO
[2018-06-16] MEDS ORDERED: BUME1 PO (19:24)
[2018-06-16] MEDS ORDERED: BUME2 PO (19:25)
[2018-06-16] MEDS ORDERED: LOSA50 PO (19:26)
[2018-06-16] MEDS ORDERED: HYDR1TAB94 PO (19:29)
== END 2018-06-16 22:42 | disposition home or self-care (01) ==
LOC: WOUND 14:48
DX: E11.621 Type 2 diabetes mellitus with foot ulcer (principal); L97.401 Non-pressure chronic ulcer of unspecified heel and midfoot limited to breakdown of skin; L97.822 Non-pressure chronic ulcer of other part of left lower leg with fat layer exposed; D50.9 Iron deficiency anemia, unspecified; E11.22 Type 2 diabetes mellitus with diabetic chronic kidney disease; I12.0 Hypertensive chronic kidney disease with stage 5 chronic kidney disease or end stage renal disease; N18.6 End stage renal disease; G62.9 Polyneuropathy, unspecified

== ENCOUNTER 2018-06-16 19:00 | Emergency (ER) | payer MEDICARE, OTHER ==
[~2018-06-16] VITALS: Ht 152.4 cm; Wt 104.3 kg
[2018-06-16] MEDS ORDERED: BUME1 PO (19:24)
[2018-06-16] MEDS ORDERED: BUME2 PO (19:25)
[2018-06-16] MEDS ORDERED: LOSA50 PO (19:26)
[2018-06-16] MEDS ORDERED: HYDR1TAB94 PO (19:29)
== END 2018-06-16 21:49 | disposition home or self-care (01) ==
LOC: ER 19:00
DX: S00.83XA Contusion of other part of head, initial encounter (principal); W06.XXXA Fall from bed, initial encounter; Z88.8 Allergy status to other drugs, medicaments and biological substances; Z79.899 Other long term (current) drug therapy; Z79.4 Long term (current) use of insulin; E11.9 Type 2 diabetes mellitus without complications
CPT/HCPCS: 70450; 72125; 99284-25

== ENCOUNTER 2018-07-04 00:12 | Day surgery (SDC) | payer MEDICARE, OTHER ==
[~2018-07-04 00:12] MED LIST changes: +BUME1 PO; +BUME2 PO; +HYDR1TAB94 PO
== END 2018-07-04 23:00 | disposition home or self-care (01) ==
LOC: WOUND 00:12
DX: E11.621 Type 2 diabetes mellitus with foot ulcer (principal); L97.401 Non-pressure chronic ulcer of unspecified heel and midfoot limited to breakdown of skin; L97.822 Non-pressure chronic ulcer of other part of left lower leg with fat layer exposed; D50.9 Iron deficiency anemia, unspecified; I10 Essential (primary) hypertension
CPT/HCPCS: G0463

== ENCOUNTER 2018-07-11 09:40 | Day surgery (SDC) | payer MEDICARE, OTHER | END 2018-07-11 22:46 | disposition home or self-care (01) | LOC: WOUND 09:40 | DX: E11.621 Type 2 diabetes mellitus with foot ulcer (principal); L97.512 Non-pressure chronic ulcer of other part of right foot with fat layer exposed; L97.822 Non-pressure chronic ulcer of other part of left lower leg with fat layer exposed; D50.9 Iron deficiency anemia, unspecified; E11.22 Type 2 diabetes mellitus with diabetic chronic kidney disease; I12.0 Hypertensive chronic kidney disease with stage 5 chronic kidney disease or end stage renal disease; N18.6 End stage renal disease; G62.9 Polyneuropathy, unspecified; Z79.4 Long term (current) use of insulin | CPT/HCPCS: 87070; 87077; 87147; 87186; 87205 ==

== ENCOUNTER 2018-07-18 08:50 | Day surgery (SDC) | payer MEDICARE, OTHER | END 2018-07-18 22:44 | disposition home or self-care (01) | LOC: WOUND 08:50 | PROC: 0HBLXZZ Excision of Left Lower Leg Skin, External Approach (ICD-10-PCS; principal; 2018-07-18) | DX: E11.622 Type 2 diabetes mellitus with other skin ulcer (principal); L97.822 Non-pressure chronic ulcer of other part of left lower leg with fat layer exposed; I10 Essential (primary) hypertension; D50.9 Iron deficiency anemia, unspecified ==

== ENCOUNTER 2018-09-27 10:18 | Observation (INO) | payer MEDICARE, OTHER ==
[~2018-09-27] VITALS: Ht 152.4 cm; Wt 106.6 kg
[~2018-09-27 10:18] MED LIST changes: -POTCHL10ER PO; -Pedi-Dri 100,0060 GM TOP
[2018-09-27] MEDS ORDERED: INSDET100 SC ×2 (11:00→12:36)
[2018-09-27] MEDS ORDERED: CLOT10 SS (11:00)
[2018-09-27] MEDS ORDERED: HYDACE25S PR (11:00)
[2018-09-27] MEDS ORDERED: BUME2 PO ×2 (11:01→12:27)
[2018-09-27] MEDS ORDERED: LEVSOD112 PO (11:01)
[2018-09-27] MEDS ORDERED: DULO60 PO (11:01)
[2018-09-27] MEDS ORDERED: ELIQUIS2.5 MG PO (11:02)
[2018-09-27] MEDS ORDERED: LOSA50 PO (11:02)
[2018-09-27] MEDS ORDERED: CHOL10002 PO (11:02)
[2018-09-27 11:35] LABS: BASOPHILS ABSOLUTE AUTO 0.02 K/mm3 (0.00-0.23); BASOPHILS PERCENT AUTO 0 % (0-2); EOSINOPHILS ABSOLUTE AUTO 0.06 K/mm3 (0.00-0.68); EOSINOPHILS PERCENT AUTO 1 % (0-6); Hematocrit 30.7 % (33.0-51.0); Hemoglobin 9.2 g/dL (11.5-16.0); IMMATURE GRAN ABSOLUTE AUTO 0.02 K/mm3 (0.00-0.10); IMMATURE GRAN PERCENT AUTO 0 % (0-1); LYMPHOCYTES ABSOLUTE AUTO 1.01 K/mm3 (0.84-5.20); LYMPHOCYTES PERCENT AUTO 20 % (21-46); MONOCYTES ABSOLUTE AUTO 0.36 K/mm3 (0.16-1.47); MONOCYTES PERCENT AUTO 7 % (4-13); Mean Corpuscular HGB 28.9 pg (26.0-34.0); Mean Corpuscular Volume 97 fL (80-100); Mean Platelet Volume 11.8 fL (9.1-12.4); NEUTROPHILS ABSOLUTE AUTO 3.49 K/mm3 (1.96-9.15); NEUTROPHILS PERCENT AUTO 70 % (41-73); Platelet Count 103 K/mm3 (150-400); RDW Coefficient Variation 15.9 % (11.7-14.2); RDW Standard Deviation 56.2 fL (35.1-46.3); Red Blood Cell Count 3.18 M/mm3 (3.80-5.20); White Blood Cell Count 4.96 K/mm3 (4.00-11.30)
[2018-09-27 11:48] LABS: International Normalized Ratio 1.21; Prothrombin Time Results 12.6 Sec (9.7-11.5)
[2018-09-27 11:53] LABS: Albumin/Globulin Ratio 0.9 (0.8-1.8); Bilirubin, Total 0.7 mg/dL (0.1-1.0); Bun/Creatinine Ratio 36.6 (12.0-20.0); Calcium, Blood 9.1 mg/dL (8.5-10.1); Creatinine, Blood 1.61 mg/dL (0.40-1.00); Globulin, Blood 4.4 g/dL (2.2-4.0); Potassium, Blood 5.8 mmol/L (3.5-5.5); Total Protein, Blood 8.4 g/dL (6.4-8.2)
[2018-09-27] MEDS ORDERED: FAMO20 PO ×2 (12:00→12:51)
[2018-09-27] MEDS ORDERED: GABA300 PO (12:01)
[2018-09-27] MEDS ORDERED: BACL10 PO ×2 (12:01→12:42)
[2018-09-27] MEDS ORDERED: FERRO-TIME325 MG PO (12:01)
[2018-09-27] MEDS ORDERED: Zocor20 MG PO (12:02)
[2018-09-27] MEDS ORDERED: ROPI.25 PO (12:02)
[2018-09-27] MEDS ORDERED: Clotrimazole15 GM TOP (12:29)
[2018-09-27] MEDS ORDERED: POTCHL10ER PO ×2 (12:40→12:41)
[2018-09-27] MEDS ORDERED: TRAM50 PO (12:44)
[2018-09-27] MEDS ORDERED: COUGH PO (12:45)
[2018-09-27] MEDS ORDERED: ACET325 PO (12:45)
[2018-09-27] MEDS ORDERED: BISA10S PR (12:47)
[2018-09-27] MEDS ORDERED: ENEMA BOTTLE1 EACH PO (12:48)
[2018-09-27] MEDS ORDERED: Milk Of Ma400 MG/5 M PO (12:49)
[2018-09-27] MEDS ORDERED: BISM87SU PO (12:49)
[2018-09-27] MEDS ORDERED: Inzo Antifun141.7 GM TOP (12:50)
[2018-09-27] MEDS ORDERED: Pedi-Dri 100,0060 GM TOP (12:52)
[2018-09-27 14:40] LABS: Hematocrit 30.2 % (33.0-51.0); Hemoglobin 9.6 g/dL (11.5-16.0); Mean Corpuscular HGB 29.1 pg (26.0-34.0); Mean Corpuscular HGB Conc 31.8 g/dL (31.5-36.5); Mean Platelet Volume 10.9 fL (9.1-12.4); Platelet Count 113 K/mm3 (150-400); RDW Standard Deviation 53.4 fL (35.1-46.3); White Blood Cell Count 5.08 K/mm3 (4.00-11.30)
[2018-09-27 14:41] LABS: Mean Corpuscular Volume 92 fL (80-100)
--- NOTE | 2018-09-27 19:15 | NUR ---
SHIFT SUMMARY PT ALERT AND ORIENTED. VS STABLE. PROTONIX GTT DISCONTINUED. NS INFUSING PER ORDERS. PT HAS HAD TWO INCONTINENT LIQUID BROWN BM. PT INCONTINENT OF BLADDER. WOUNDS TO BILATERAL LOWER EXTREMITIES DRESSED AND PICTURES TAKEN. LEGS ELEVATED ON PILLOWS. PT HAS BEEN REPOSITIONED Q2H. REPORT GIVEN TO MILLINER HELPER RN.
[2018-09-28 04:23] LABS: Bun/Creatinine Ratio 38.4 (12.0-20.0); Calcium, Blood 8.6 mg/dL (8.5-10.1); Creatinine, Blood 1.38 mg/dL (0.40-1.00); Magnesium, Blood 2.7 mg/dL (1.6-2.4)
[2018-09-28 04:57] LABS: BASOPHILS ABSOLUTE AUTO 0.02 K/mm3 (0.00-0.23); BASOPHILS PERCENT AUTO 1 % (0-2); EOSINOPHILS ABSOLUTE AUTO 0.12 K/mm3 (0.00-0.68); EOSINOPHILS PERCENT AUTO 3 % (0-6); Hemoglobin 9.5 g/dL (11.5-16.0); IMMATURE GRAN ABSOLUTE AUTO 0.01 K/mm3 (0.00-0.10); IMMATURE GRAN PERCENT AUTO 0 % (0-1); LYMPHOCYTES PERCENT AUTO 31 % (21-46); MONOCYTES PERCENT AUTO 10 % (4-13); Mean Corpuscular HGB 28.8 pg (26.0-34.0); Mean Corpuscular HGB Conc 30.6 g/dL (31.5-36.5); Mean Corpuscular Volume 94 fL (80-100); NEUTROPHILS ABSOLUTE AUTO 2.14 K/mm3 (1.96-9.15); NEUTROPHILS PERCENT AUTO 55 % (41-73); Platelet Count 104 K/mm3 (150-400); RDW Coefficient Variation 15.9 % (11.7-14.2); RDW Standard Deviation 54.4 fL (35.1-46.3); White Blood Cell Count 3.89 K/mm3 (4.00-11.30)
--- NOTE | 2018-09-28 05:32 | NUR ---
SHIFT SUMMARY PT A&O X4. LUNG SOUNDS COARSE T/O. SPO2 > 92% ON RA. MONITOR SHOW NSR, HR 60-100. VSS. NO SIGNS OF BLEEDING. NO BM'S THIS SHIFT. PT INCONTINENT OF URINE. PRN SHANTELLE CARE/ATTENDS CHANGES PROVIDED. DRESSINGS TO BLE WOUNDS C/D/I. WILL CONTINUE TO MONITOR AND PROVIDE CARE UNTIL REPORT OFF TO DAY SHIFT RN.
--- NOTE | 2018-09-28 12:01 | NUR ---
DR MARROQUIN TO SEE PATIENT. HE IS PLANNING TO D/C PATIENT HOME TO [facility] TODAY. CALLED [facility] TO SCHEDULE TRANSPORT.
[2018-09-28] MEDS ORDERED: Humalog100 UNIT/3 SC (12:46)
--- NOTE | 2018-09-28 16:26 | NUR ---
PT D/C VIA [email or web address].
== END 2018-09-28 16:24 | disposition home or self-care (01) ==
LOC: ER 10:18 → PCU 10:19 → ER 12:04 → PCU 12:04
PROVIDERS: Emergency Medicine; ADMIT Internal Medicine
DX: K64.9 Unspecified hemorrhoids (principal); N17.9 Acute kidney failure, unspecified; E86.0 Dehydration; I48.0 Paroxysmal atrial fibrillation; E13.42 Other specified diabetes mellitus with diabetic polyneuropathy; E13.22 Other specified diabetes mellitus with diabetic chronic kidney disease; N18.9 Chronic kidney disease, unspecified; E03.9 Hypothyroidism, unspecified; F32.9 Major depressive disorder, single episode, unspecified; E66.01 Morbid (severe) obesity due to excess calories; Z79.899 Other long term (current) drug therapy; Z79.02 Long term (current) use of antithrombotics/antiplatelets; Z79.4 Long term (current) use of insulin; Z88.8 Allergy status to other drugs, medicaments and biological substances; Z68.42 Body mass index [BMI] 45.0-49.9, adult
CPT/HCPCS: 36415; 71045; 80048; 80053; 82272; 82947; 83735; 85025; 85027; 85610; 85730; 86850; 86900; 86901; 93005; 93010; 96365; 96366; 97162; 97530; 99285-25; C9113; G0378; J7030; J7040

== ENCOUNTER 2018-10-04 11:55 | Day surgery (SDC) | payer MEDICARE, OTHER ==
[~2018-10-04 11:55] MED LIST changes: +BISA10S PR; +BISM87SU PO; +CLOT10 SS; +COUGH PO; +Clotrimazole15 GM TOP; +ENEMA BOTTLE1 EACH PO; +FERRO-TIME325 MG PO; +HYDACE25S PR; +Humalog100 UNIT/3 SC; +Inzo Antifun141.7 GM TOP; +LEVSOD112 PO; +Milk Of Ma400 MG/5 M PO; +POTCHL10ER PO; +Pedi-Dri 100,0060 GM TOP; +Zocor20 MG PO
== END 2018-10-04 22:50 | disposition home or self-care (01) ==
LOC: WOUND
DX: E11.622 Type 2 diabetes mellitus with other skin ulcer (principal); L97.822 Non-pressure chronic ulcer of other part of left lower leg with fat layer exposed; L89.623 Pressure ulcer of left heel, stage 3; L89.611 Pressure ulcer of right heel, stage 1; I10 Essential (primary) hypertension; E11.621 Type 2 diabetes mellitus with foot ulcer; D50.9 Iron deficiency anemia, unspecified
CPT/HCPCS: G0463

== ENCOUNTER 2018-10-27 00:31 | Day surgery (SDC) | payer MEDICARE, OTHER | END 2018-10-27 23:14 | disposition home or self-care (01) | LOC: WOUND 00:31 | DX: E11.622 Type 2 diabetes mellitus with other skin ulcer (principal); L97.821 Non-pressure chronic ulcer of other part of left lower leg limited to breakdown of skin; L89.623 Pressure ulcer of left heel, stage 3; L89.619 Pressure ulcer of right heel, unspecified stage; E11.40 Type 2 diabetes mellitus with diabetic neuropathy, unspecified; I12.0 Hypertensive chronic kidney disease with stage 5 chronic kidney disease or end stage renal disease; E11.22 Type 2 diabetes mellitus with diabetic chronic kidney disease; N18.6 End stage renal disease; D50.9 Iron deficiency anemia, unspecified; E66.9 Obesity, unspecified ==

== ENCOUNTER 2018-10-31 13:48 | Day surgery (SDC) | payer MEDICARE, OTHER | END 2018-10-31 22:55 | disposition home or self-care (01) | LOC: WOUND 13:48 | DX: E11.622 Type 2 diabetes mellitus with other skin ulcer (principal); L97.822 Non-pressure chronic ulcer of other part of left lower leg with fat layer exposed; L89.623 Pressure ulcer of left heel, stage 3; L89.611 Pressure ulcer of right heel, stage 1; E11.40 Type 2 diabetes mellitus with diabetic neuropathy, unspecified; I12.0 Hypertensive chronic kidney disease with stage 5 chronic kidney disease or end stage renal disease; E11.22 Type 2 diabetes mellitus with diabetic chronic kidney disease; N18.6 End stage renal disease; D50.9 Iron deficiency anemia, unspecified; E66.9 Obesity, unspecified ==

== ENCOUNTER 2018-11-07 13:44 | Day surgery (SDC) | payer MEDICARE, OTHER | END 2018-11-07 23:07 | disposition home or self-care (01) | LOC: WOUND 13:44 | DX: E11.622 Type 2 diabetes mellitus with other skin ulcer (principal); L97.822 Non-pressure chronic ulcer of other part of left lower leg with fat layer exposed; L89.893 Pressure ulcer of other site, stage 3; L89.623 Pressure ulcer of left heel, stage 3; L89.611 Pressure ulcer of right heel, stage 1; I12.9 Hypertensive chronic kidney disease with stage 1 through stage 4 chronic kidney disease, or unspecified chronic kidney disease; E11.22 Type 2 diabetes mellitus with diabetic chronic kidney disease; N18.6 End stage renal disease; E11.40 Type 2 diabetes mellitus with diabetic neuropathy, unspecified; D50.9 Iron deficiency anemia, unspecified; E66.9 Obesity, unspecified; Z68.43 Body mass index [BMI] 50.0-59.9, adult ==

== ENCOUNTER 2018-11-14 00:21 | Day surgery (SDC) | payer MEDICARE, OTHER | END 2018-11-14 22:59 | disposition home or self-care (01) | LOC: WOUND 00:21 | DX: E11.622 Type 2 diabetes mellitus with other skin ulcer (principal); L97.822 Non-pressure chronic ulcer of other part of left lower leg with fat layer exposed; L89.623 Pressure ulcer of left heel, stage 3; L89.611 Pressure ulcer of right heel, stage 1; E11.40 Type 2 diabetes mellitus with diabetic neuropathy, unspecified; I12.0 Hypertensive chronic kidney disease with stage 5 chronic kidney disease or end stage renal disease; E11.22 Type 2 diabetes mellitus with diabetic chronic kidney disease; N18.6 End stage renal disease; D50.9 Iron deficiency anemia, unspecified; E66.9 Obesity, unspecified | CPT/HCPCS: G0463 ==

== ENCOUNTER 2018-11-21 14:38 | Day surgery (SDC) | payer MEDICARE, OTHER ==
[~2018-11-21 14:38] MED LIST changes: -BISA10S PR; -Inzo Antifun141.7 GM TOP; -LEVSOD112 PO; +LEVSOD125 PO
== END 2018-11-21 23:23 | disposition home or self-care (01) ==
LOC: WOUND 14:38
DX: E11.622 Type 2 diabetes mellitus with other skin ulcer (principal); L97.822 Non-pressure chronic ulcer of other part of left lower leg with fat layer exposed; L89.623 Pressure ulcer of left heel, stage 3; L89.611 Pressure ulcer of right heel, stage 1; E11.621 Type 2 diabetes mellitus with foot ulcer; L97.522 Non-pressure chronic ulcer of other part of left foot with fat layer exposed; I10 Essential (primary) hypertension

== ENCOUNTER 2018-11-27 08:36 | Inpatient (IN) | payer MEDICARE, OTHER ==
[~2018-11-27] VITALS: Ht 152.4 cm; Wt 114.3 kg
[2018-11-27] MEDS ORDERED: PANT40 PO (09:13)
[2018-11-27 10:16] LABS: BASOPHILS ABSOLUTE AUTO 0.02 K/mm3 (0.00-0.23); BASOPHILS PERCENT AUTO 1 % (0-2); EOSINOPHILS ABSOLUTE AUTO 0.04 K/mm3 (0.00-0.68); EOSINOPHILS PERCENT AUTO 1 % (0-6); Hemoglobin 8.1 g/dL (11.5-16.0); IMMATURE GRAN ABSOLUTE AUTO 0.02 K/mm3 (0.00-0.10); IMMATURE GRAN PERCENT AUTO 1 % (0-1); LYMPHOCYTES ABSOLUTE AUTO 1.08 K/mm3 (0.84-5.20); LYMPHOCYTES PERCENT AUTO 25 % (21-46); MONOCYTES ABSOLUTE AUTO 0.42 K/mm3 (0.16-1.47); MONOCYTES PERCENT AUTO 10 % (4-13); Mean Corpuscular HGB 22.8 pg (26.0-34.0); Mean Corpuscular HGB Conc 28.9 g/dL (31.5-36.5); Mean Corpuscular Volume 79 fL (80-100); Mean Platelet Volume 11.4 fL (9.1-12.4); NEUTROPHILS PERCENT AUTO 63 % (41-73); Platelet Count 87 K/mm3 (150-400); Red Blood Cell Count 3.55 M/mm3 (3.80-5.20); White Blood Cell Count 4.28 K/mm3 (4.00-11.30)
[2018-11-27 10:38] LABS: Alanine Aminotransfer (ALT/SGP 24 U/L (12-78); Albumin, Blood 3.9 g/dL (3.4-5.0); Alk Phos 104 U/L (50-136); Anion Gap 7 mmol/L (6-16); Aspartate Aminotrans (AST/SGOT 25 U/L (12-37); Bilirubin, Total 0.7 mg/dL (0.1-1.0); Blood Urea Nitrogen 28 mg/dL (8-24); CO2, Blood 29 mmol/L (21-32); Calcium, Blood 8.7 mg/dL (8.5-10.1); Chloride, Blood 103 mmol/L (98-108); Creatinine, Blood 1.22 mg/dL (0.40-1.00); Globulin, Blood 3.8 g/dL (2.2-4.0); Glomerular Filtration Rate 47 (60-); Glucose, Blood 177 mg/dL (70-99); Sodium, Blood 139 mmol/L (136-145); Total Protein, Blood 7.7 g/dL (6.4-8.2); Troponin I <0.015 ng/mL (0.000-0.040)
[2018-11-27] MEDS ORDERED: TRAM50 PO (12:59)
[2018-11-27] MEDS ORDERED: ACET325 PO (12:59)
[2018-11-27] MEDS ORDERED: Inzo Antifun141.7 GM TOP ×2 (13:00→13:02)
[2018-11-27] MEDS ORDERED: BISA10S PR (13:00)
[2018-11-27] MEDS ORDERED: COUGH PO (13:01)
--- NOTE | 2018-11-27 14:00 | NUR ---
ADMISSION SUMMARY ALERT, ORIENTED X3, DID NOT KNOW WHICH HOSPITAL OR TOWN SHE WAS IN, SHE STATED SHE WAS IN [place]. PT LIVES AT [facility]. LUNGS COARSE THROUGHOUT, MOIST NON-PRODUCTIVE COUGH, TACHYPNEIC, ROOM AIR, SATS 93-96%, CONTINUOUS PULSE OX. SR ON TELEMETRY, HR 70'S, VSS. OBESE, ADA DIET. BLOOD SUGAR CHECKS AC & HS. ATTENDS IN PLACE, CHANGED UPON ADMIT. DIAPHORETIC, BILATERAL LOWER EXTREMITY CELLULITIS THAT HAS BEEN CARED FOR BY WOUND CARE STAFF. LAC 18G IN PLACE. INFUSING LR X 3.5 L PER [facility] GUIDELINES. NEED TO COLLECT SPUTUM, PT UNABLE TO COUGH ANYTHING UP AT THIS TIME. LACTIC ACID 4.9.
[2018-11-27] MEDS ORDERED: CEPH500 PO (15:29)
--- NOTE | 2018-11-27 17:51 | NUR ---
NURSING SUMMARY PT SOB, TACHYPNEIC, DYSPNEIC, SATS REMAINING 92% ON ROOM AIR. APPLIED 2L O2 NC, SATS INCREASED TO 97%. TOOK PICS OF BILATERAL LOWER EXTREMITY WOUNDS.
[2018-11-28 03:39] LABS: BASOPHILS PERCENT AUTO 0 % (0-2); EOSINOPHILS PERCENT AUTO 0 % (0-6); Hemoglobin 7.7 g/dL (11.5-16.0); IMMATURE GRAN ABSOLUTE AUTO 0.01 K/mm3 (0.00-0.10); IMMATURE GRAN PERCENT AUTO 1 % (0-1); LYMPHOCYTES ABSOLUTE AUTO 0.35 K/mm3 (0.84-5.20); LYMPHOCYTES PERCENT AUTO 17 % (21-46); MONOCYTES ABSOLUTE AUTO 0.09 K/mm3 (0.16-1.47); MONOCYTES PERCENT AUTO 4 % (4-13); Mean Corpuscular HGB 22.9 pg (26.0-34.0); Mean Corpuscular HGB Conc 28.5 g/dL (31.5-36.5); Mean Corpuscular Volume 80 fL (80-100); Mean Platelet Volume 12.2 fL (9.1-12.4); NEUTROPHILS ABSOLUTE AUTO 1.66 K/mm3 (1.96-9.15); NEUTROPHILS PERCENT AUTO 79 % (41-73); Platelet Count 59 K/mm3 (150-400); RDW Coefficient Variation 17.1 % (11.7-14.2); RDW Standard Deviation 50.4 fL (35.1-46.3); Red Blood Cell Count 3.36 M/mm3 (3.80-5.20); White Blood Cell Count 2.11 K/mm3 (4.00-11.30)
[2018-11-28 03:52] LABS: Calcium, Blood 8.5 mg/dL (8.5-10.1); Creatinine, Blood 1.31 mg/dL (0.40-1.00); Potassium, Blood 4.3 mmol/L (3.5-5.5)
--- NOTE | 2018-11-28 06:05 | NUR ---
PCU NOC SHIFT SUMMARY PATIENT ALERT AND ORIENTED TO SELF, LOCATION AND NEEDS. PATIENT CONFUSED TO EXACT DATE AT TIME, REORIENTS EASILY. PATIENT DENIES PAIN T/O SHIFT. PATIENT HAS COURSE TO DIM LUNG SOUNDS T/O - ON ROOM AIR T/O SHIFT. PATIENT BED BOUND T/O SHIFT - PATIENT REFUSED TO STAND AND PIVOT UP TO CHAIR OR COMMODE WHILE CHANGING - PATIENT INCONTINENT OF URINE WITH LARGE HEAVY VOIDS THAT SATURATED ALL OF BEDDING, PATIENT ENCOURAGED TO USE CALL LIGHT AND INFORM NURSING STAFF WHEN SOILED BUT SHE DID NOT T/O SHIFT. ATTENDS IN PLACE. PATIENT REMAINS ON ROOM AIR. SLEPT WELL THIS SHIFT. NO ACUTE EVENTS NOTED. HEART RATE REMAINS IN THE 70'S T/O SHIFT NSR. WILL CONTINUE TO MONITOR AND GIVE REPORT TO DAYSHIFT RN.
--- NOTE | 2018-11-28 07:15 | NUR ---
RECEIVED REPORT FROM ELIZABETH HANCOCK, AND ASSUMED CARE OF PT.
--- NOTE | 2018-11-28 09:12 | NUR ---
RECEIVED REPORT FROM ELIZABETH HANCOCK, AND ASSUMED CARE OF PT.
--- NOTE | 2018-11-28 10:10 | NUR ---
DR. GUADARRAMA AT BEDSIDE FOR EVALUATION.
--- NOTE | 2018-11-28 10:22 | NUR ---
ECHO AT BEDSIDE.
--- NOTE | 2018-11-28 11:04 | NUR ---
Echocardiogram completed.
--- NOTE | 2018-11-28 11:15 | NUR ---
RESPIRATORY PANEL PCR SENT TO LAB.
--- NOTE | 2018-11-28 11:30 | NUR ---
CAUSTIC ROOM OPERATOR'S SAT PT UP ON SIDE OF THE BED, ATTEMPTING TO ASSIST PT INTO THE BEDSIDE CHAIR. PT BECAUSE SOB, TACHYPNEIC, DYSPNEIC, SATS REDUCED TO 87% ON ROOM AIR, APPLIED OXYGEN 2L NC, LUNGS SOUNDS WITH WHEEZES THROUGHOUT, ASSISTED PT BACK TO BED.
--- NOTE | 2018-11-28 11:40 | NUR ---
PT LAYING IN BED. LUNGS REMAIN COARSE WITH WHEEZES, 2L O2 NC, SATS 96%. PT DENIES SOB AT THIS TIME.
--- NOTE | 2018-11-28 11:41 | NUR ---
Call to Dr Bowen regarding blood sugar of 437 at this time; No answer, so message left. coverage per standing high sliding scale.
--- NOTE | 2018-11-28 11:50 | NUR ---
CALLED DR. GUADARRAMA RE: ELEVATED BLOOD SUGARS, CURRENTLY 437, AND HAS BEEN RUNNING IN SHADI 400'S X 3 CBG'S. NEW ORDERS PROVIDED.
--- NOTE | 2018-11-28 12:45 | NUR ---
REPORT CALLED TO VALERI RN, AND PT TRANSFERRED TO ROOM 229 VIA [facility] WITH [employer].
[2018-11-28 12:58] LABS: Adenovirus Not Detected (NOT DETECT); Bordetella pertussis Not Detected (NOT DETECT); Chlamydophila pneumoniae Not Detected (NOT DETECT); Coronavirus 229E Not Detected (NOT DETECT); Coronavirus HKU1 Not Detected (NOT DETECT); Coronavirus NL63 Not Detected (NOT DETECT); Coronavirus OC43 Not Detected (NOT DETECT); Human Metapneumovirus Detected (NOT DETECT); Human Rhinovirus/Enterovirus Not Detected (NOT DETECT); Influenza A Not Detected (NOT DETECT); Influenza A/2009-H1 Not Detected (NOT DETECT); Influenza A/H1 Not Detected (NOT DETECT); Influenza A/H3 Not Detected (NOT DETECT); Influenza B Not Detected (NOT DETECT); Mycoplasma pneumoniae Not Detected (NOT DETECT); Parainfluenza Virus 1 Not Detected (NOT DETECT); Parainfluenza Virus 2 Not Detected (NOT DETECT); Parainfluenza Virus 3 Not Detected (NOT DETECT); Parainfluenza Virus 4 Not Detected (NOT DETECT); Respiratory Syncytial Virus Not Detected (NOT DETECT)
--- NOTE | 2018-11-28 13:13 | NUR ---
ARRIVAL TO UNIT PT ARRIVAL TO UNIT FROM PCU. TRANSFERRED TO BED. PT ABLE TO TURN FROM SIDE TO SIDE WITH MINIMAL ASSISTANCE. ATTENDS CHANGED. LUNGS ARE COARSE T/O, BUT PT O2 SATS STABLE ON RA. VSS AND HYPERTENSION IMPROVING FROM THIS MORNING. PT DENIES ANY PAIN. PT DOES HAVE A NONPRODUCTIVE COUGH WITH SPUTUM CUP AT BEDSIDE FOR SAMPLE COLLECTION. IV ABX INFUSING PER ORDERS. ORIENTED TO ROOM. CALL LIGHT WITHIN REACH.
--- NOTE | 2018-11-28 16:42 | NUR ---
SHIFT SUMMARY NO ACUTE CHANGES SINCE ARRIVAL TO UNIT. PT RESTING IN BED WITH NO COMPLAINTS. CALL LIGHT WITHIN REACH.
--- NOTE | 2018-11-28 17:45 | NUR ---
recvd report from ninoska Chen and assumed care of pt who is resting in her bed, call light within reach.
[2018-11-29 04:40] LABS: BASOPHILS PERCENT AUTO 0 % (0-2); EOSINOPHILS PERCENT AUTO 0 % (0-6); Hematocrit 25.8 % (33.0-51.0); Hemoglobin 7.6 g/dL (11.5-16.0); IMMATURE GRAN ABSOLUTE AUTO 0.03 K/mm3 (0.00-0.10); IMMATURE GRAN PERCENT AUTO 1 % (0-1); LYMPHOCYTES ABSOLUTE AUTO 0.38 K/mm3 (0.84-5.20); LYMPHOCYTES PERCENT AUTO 8 % (21-46); MONOCYTES ABSOLUTE AUTO 0.17 K/mm3 (0.16-1.47); MONOCYTES PERCENT AUTO 3 % (4-13); Mean Corpuscular HGB 22.6 pg (26.0-34.0); Mean Corpuscular HGB Conc 29.5 g/dL (31.5-36.5); NEUTROPHILS ABSOLUTE AUTO 4.49 K/mm3 (1.96-9.15); NEUTROPHILS PERCENT AUTO 89 % (41-73); Platelet Count 78 K/mm3 (150-400); RDW Coefficient Variation 17.2 % (11.7-14.2); RDW Standard Deviation 48.1 fL (35.1-46.3); Red Blood Cell Count 3.37 M/mm3 (3.80-5.20); White Blood Cell Count 5.07 K/mm3 (4.00-11.30)
[2018-11-29 04:45] LABS: Mean Corpuscular Volume 77 fL (80-100); Mean Platelet Volume 12.4 fL (9.1-12.4)
[2018-11-29 04:58] LABS: Anion Gap 9 mmol/L (6-16); Blood Urea Nitrogen 45 mg/dL (8-24); CO2, Blood 26 mmol/L (21-32); Calcium, Blood 8.6 mg/dL (8.5-10.1); Chloride, Blood 95 mmol/L (98-108); Creatinine, Blood 1.25 mg/dL (0.40-1.00); Glomerular Filtration Rate 45 (60-); Glucose, Blood 416 mg/dL (70-99); Phosphorus, Blood 3.3 mg/dL (2.5-4.9); Potassium, Blood 4.1 mmol/L (3.5-5.5); Sodium, Blood 130 mmol/L (136-145)
--- NOTE | 2018-11-29 05:44 | NUR ---
SUMMARY: PT ADMITTED FOR PNEUMONIA. NO ACUTE CHANGE TONIGHT, A/O. SOME HTN, OTHERWISE VSS, PT ON RA, CONTINUIOUS BI OX IN PLACE. ALBUTEROL GIVEN PRN. PT HAS DRY COUGH, UNPRODUCTIVE. PT TURNS WELL PER ELECTROTYPER, ATTENDS CHANGED PRN AND REPOSITIONED. MULTIPLE SMALL BM'S. NO ACUTE SAFETY CONCERNS AT THIS TIME.
--- NOTE | 2018-11-29 09:41 | NUR ---
DR. CURRIE ROUNDED ON PT THIS AM. HE WAS NOTIFIED THAT BLOOD GLUCOSE WAS 453, BP ELEVATED AT 171/56 AND H&H LOW. AM INSULIN GIVEN PER ORDER. WILL CONTINUE TO MONITOR. PT ASYMPTOMATIC WITH ELEVATED BP.
[2018-11-29 10:47] LABS: Percent Saturation 3.4 % (15.0-50.0)
--- NOTE | 2018-11-29 14:12 | NUR ---
ELEVATED BLOOD GLUCOSE PT HAD ELEVATED GLUCOSE OF 499, INSULIN GIVEN PER ORDER. ELIZABETH NORMAN RN NOTIFIED OF GLUCOSE LEVEL. DR. CURRIE MADE AWARE OF GLUCOSE LEVELS GREATER THAN 400 DURING ROUNDING THIS AM. WILL MONITOR AND RECHECK BLOOD GLUCOSE IN 1 HOUR.
--- NOTE | 2018-11-29 17:58 | NUR ---
SHIFT SUMMARY PT BECOMES SOB WITH ACTIVITY. SHE IS A 2 ASSIST STANDING AND TRANSFERS. INCONTINENT OF BOWEL AND BLADDER THIS SHIFT; ATTENDS IN PLACE. PT IS ABLE TO REPOSITION HERSELF INDEPENDENTLY. VSS. WILL MONITOR UNTIL REPORT TO ONCOMING RN.
[2018-11-30 04:33] LABS: Bun/Creatinine Ratio 35.2 (12.0-20.0); Calcium, Blood 8.7 mg/dL (8.5-10.1); Creatinine, Blood 1.22 mg/dL (0.40-1.00); Potassium, Blood 4.2 mmol/L (3.5-5.5)
--- NOTE | 2018-11-30 07:20 | NUR ---
SUMMARY PT ONLY C/O SOB WITH ACTIVITY.REMOVED DSNGS L FOOT. APPEARS CALCIUM ALGENATE WAS USED BY HH? I RE-WRAPPED WITH TELFA NON -STICK AND COBAN.DAY RN AGREES TO FOLLOW UP ON ORDERS FOR CHANGES.
[2018-11-30 08:12] LABS: HBSAG SCREEN Negative (Negative); HEP A AB, IGM Negative (Negative); HEP B CORE AB, TOT Negative (Negative); HEP C VIRUS AB <0.1 (0.0-0.9)
--- NOTE | 2018-11-30 12:16 | NUR ---
CHEST HEAVINESS PT REPORTED SHE WAS HAVING CHEST HEAVINESS. PT SAID SHE FELT LIKE A "CEMENT BLOCK" WAS ON HER CHEST. PT DENIED SHORTNESS OF BREATH. BREATHING TREAMENT WAS GIVEN BY DARVIN JOHNSON. PT REPORTED CHEST DISCOMFORT WAS RELIEVED AFTER BREATHING TREAMENT. VSS. PT EDUCATED TO NOTIFY STAFF IF CHEST DISCOMFORT RETURNS. WILL CONTINUE TO MONITOR.
--- NOTE | 2018-11-30 18:30 | NUR ---
SHIFT SUMMARY PT DENIES SHORTNESS OF BREATH THIS SHIFT. PT WORKED WITH THERAPY AND DESATURATED. SHE WAS PLACED ON OXYGEN AND RECOVERED QUICKLY. LUNG SOUNDS CONTINUE TO BE WHEEZY. PT INCONTINENT OF URINE, ATTENDS IN PLACE. VSS. WILL MONITOR UNTIL REPORT TO ONCOMING RN.
[2018-11-30 18:37] LABS: Hematocrit 28.9 % (33.0-51.0); Hemoglobin 8.5 g/dL (11.5-16.0)
[2018-12-01 05:02] LABS: Bun/Creatinine Ratio 28.7 (12.0-20.0); Calcium, Blood 8.7 mg/dL (8.5-10.1); Creatinine, Blood 1.36 mg/dL (0.40-1.00); Potassium, Blood 3.9 mmol/L (3.5-5.5)
--- NOTE | 2018-12-01 07:26 | NUR ---
SUMMARY PT WAS REPORTED TO HAVE HAD DESAT AND DISCOLORATION EPISODE YESTERDAY WHILE OOB WITH P.T.ALSO PER NOTES, PT HAD HEAVYNESSS TO CHEST EARLIER IN THE DAY. TONIGHT PT APPEARING TO HAVE MILD EXPRESSIVE ISSUES AND SHE REPORTS SHE HAS STRUGGLED ELIAS TO GET HE WORDS,ALTHOUGH WHEN SHE DOES SPEAKSENTENCES ARE SLOW DELIBERATE BUT APPROPRIATE TO SITUATION. I NOTIFIED HOSPITALIST DR SIGALA. PT DOES VERB THIS HAS OCC HAPPENED PRIOR.CBGS NEED TO BE MONITORED CLOSELY PT HAS BEEN DROPPING SIGNIFICANTLY AND WE SUPPLIED SNACKS.
--- NOTE | 2018-12-01 17:34 | NUR ---
to room 361 per bed
--- NOTE | 2018-12-01 17:51 | NUR ---
PATIENT TRANSFER THE PATIENT WAS TRANSFERRED TO THE MEDICAL FLOOR, ROOM #361. AFTER REPORT WAS CALLED UP FORM NURSE JUDY RN. THE PATIENT WAS SETTLED IN AND CHANGED. WILL CONTINUE TO MONITOR.
--- NOTE | 2018-12-02 06:51 | NUR ---
Rn summary: Pt was very sleepy at the beginning of shift. Pt would arouse easily then go right back to sleep. Pt did not eat dinner but did eat a RB sandwich and a diet pudding at 2100. Pt is on continuous biox with sats running 94%. Pt is incontinent of urine. Drsg intact to left ankle and rt heel. Pt is very pleasant. Call light in reach.
[2018-12-02 06:52] LABS: Bun/Creatinine Ratio 31.9 (12.0-20.0); Calcium, Blood 8.4 mg/dL (8.5-10.1); Creatinine, Blood 1.35 mg/dL (0.40-1.00); Potassium, Blood 4.2 mmol/L (3.5-5.5)
--- NOTE | 2018-12-02 17:42 | NUR ---
SHIFT SUMMARY THE PATIENT PRESENTED THIS SHIFT WITH LUNG SOUNDS THAT WERE WHEEZES THROUGHOUT. THE PATIENT IS A&O X4 AND VITALS WNL. THE PATIENT'S DOCTOR ORDER THREE CONSULTS FOR THE PATIENT AND THEY WERE PROCESSED NEEDED. THE PATIENT HAS SLEPT OFF AND ON THIS SHIFT. THE PATIENT IS WAITING FOR DINNER, WATCHING TV. WILL CONTINUE TO MONITOR.
[2018-12-03 04:48] LABS: Hematocrit 27.5 % (33.0-51.0); Hemoglobin 8.1 g/dL (11.5-16.0); Mean Corpuscular HGB Conc 29.5 g/dL (31.5-36.5); Mean Corpuscular Volume 78 fL (80-100); Mean Platelet Volume 11.2 fL (9.1-12.4); Platelet Count 91 K/mm3 (150-400); RDW Standard Deviation 49.8 fL (35.1-46.3); Red Blood Cell Count 3.52 M/mm3 (3.80-5.20); White Blood Cell Count 3.52 K/mm3 (4.00-11.30)
[2018-12-03 05:02] LABS: Bun/Creatinine Ratio 30.9 (12.0-20.0); Calcium, Blood 8.5 mg/dL (8.5-10.1); Creatinine, Blood 1.36 mg/dL (0.40-1.00); Potassium, Blood 3.8 mmol/L (3.5-5.5)
--- NOTE | 2018-12-03 06:12 | NUR ---
SHIFT SUMMARY PT SLEPT WELL T/O NIGHT. OFFERS NO C/O'S. SLEEP STUDY DONE DURING THE NIGHT. PT INCONTINENT OF URINE AND BM DURING NIGHT WELL. NO ACUTE CHANGES OR EVENTS NOTED, WILL CONTINUE TO MONITOR.
--- NOTE | 2018-12-03 16:47 | NUR ---
SHIFT SUMMARY. THE PATIENT PRESENTED THIS SHIFT A&O X4, WITH LUNG SOUNDS THAT HAD AN EX. WHEEZE AND WITH VITALS THAT WERE WNL. THE PATIENT HAS WATCHED TELEVISION ALL SHIFT WHILE RESTING. THE PATIENT'S WOUND COVERING ON HER RIGHT HEEL WAS REPLACED THIS SHIFT IT WAS COMING OFF. THE PATIENT IS NAPPING AT THIS TIME, WILL CONTINUE TO MONITOR.
[2018-12-04 04:58] LABS: Hematocrit 27.8 % (33.0-51.0); Hemoglobin 8.1 g/dL (11.5-16.0); Mean Corpuscular HGB 22.8 pg (26.0-34.0); Mean Corpuscular HGB Conc 29.1 g/dL (31.5-36.5); Mean Corpuscular Volume 78 fL (80-100); Platelet Count 100 K/mm3 (150-400); RDW Coefficient Variation 18.8 % (11.7-14.2); RDW Standard Deviation 50.4 fL (35.1-46.3); Red Blood Cell Count 3.56 M/mm3 (3.80-5.20); White Blood Cell Count 4.59 K/mm3 (4.00-11.30)
[2018-12-04 05:01] LABS: Mean Platelet Volume 11.6 fL (9.1-12.4)
[2018-12-04 05:11] LABS: Bun/Creatinine Ratio 29.1 (12.0-20.0); Calcium, Blood 8.6 mg/dL (8.5-10.1); Creatinine, Blood 1.34 mg/dL (0.40-1.00); Potassium, Blood 4.1 mmol/L (3.5-5.5)
--- NOTE | 2018-12-04 06:05 | NUR ---
SHIFT SUMMARY PT SLEPT FAIR DURING NIGHT. ALERT AND ORIENTED. BLOOD SUGARS REMAINED BELOW 400 LAST NIGHT. NO ACUTE EVENTS NOTED, WILL CONTINUE TO MONITOR.
[2018-12-04] MEDS ORDERED: BISA10S PR (13:33)
[2018-12-04] MEDS ORDERED: TORSE20 (13:35)
[2018-12-04] MEDS ORDERED: INSULANPEN SC (13:36)
[2018-12-04] MEDS ORDERED: ALBU2.5V5 INH (13:38)
[2018-12-04] MEDS ORDERED: ALBU3IS INH (13:40)
[2018-12-04] MEDS ORDERED: Vsl#3 Capsule1 EACH (13:44)
[2018-12-04] MEDS ORDERED: GAVILAX17 GM PO (13:57)
--- NOTE | 2018-12-04 17:00 | NUR ---
PT. DISCHARGED TO [facility] VIA [facility]. REPORT CALLED TO ASHLEY JOHNSON. CHERIEGIA ANDERSON'D INTACT.
== END 2018-12-04 17:03 | disposition home or self-care (01) | DRG 291 ==
LOC: ER 08:36 → MEDS 12:30 → PCU 12:30 → SURS 12:30 → PCU 13:47 → SURS 11-28 12:50 → MEDS 12-01 17:34 → ENPENDDIS 12-04 11:13 → MEDS 12-04 17:03
PROVIDERS: Emergency Medicine; Internal Medicine; ADMIT Internal Medicine
DX: I50.33 Acute on chronic diastolic (congestive) heart failure (principal); J12.3 Human metapneumovirus pneumonia; J96.01 Acute respiratory failure with hypoxia; D61.818 Other pancytopenia; J44.0 Chronic obstructive pulmonary disease with (acute) lower respiratory infection; J44.1 Chronic obstructive pulmonary disease with (acute) exacerbation; K76.6 Portal hypertension; I48.0 Paroxysmal atrial fibrillation; E11.22 Type 2 diabetes mellitus with diabetic chronic kidney disease; N18.3 Chronic kidney disease, stage 3 (moderate); G25.81 Restless legs syndrome; E03.9 Hypothyroidism, unspecified; B19.20 Unspecified viral hepatitis C without hepatic coma; I27.20 Pulmonary hypertension, unspecified; E87.70 Fluid overload, unspecified; B97.81 Human metapneumovirus as the cause of diseases classified elsewhere; K74.60 Unspecified cirrhosis of liver; Z79.4 Long term (current) use of insulin; I05.2 Rheumatic mitral stenosis with insufficiency; I35.0 Nonrheumatic aortic (valve) stenosis; R53.81 Other malaise
CPT/HCPCS: 36415; 71046; 71250; 80048; 80053; 80069; 82728; 82947; 83540; 83550; 83605; 83880; 84145; 84484; 85014; 85018; 85025; 85027; 86704; 86708; 86803; 87040; 87340; 87486; 87581; 87633; 87798; 93005; 93010; 93306; 93308; 93922; 94640; 94644; 94760; 94762; 96365; 96375; 97116; 97163; 97530; 99285-25; J1940; J1956; J2916; J2920; J2930; J7120; J7512

== ENCOUNTER 2018-12-12 13:15 | Day surgery (SDC) | payer MEDICARE, OTHER ==
[~2018-12-12 13:15] MED LIST changes: +ALBU2.5V5 INH; +ALBU3IS INH; +BISA10S PR; +GAVILAX17 GM PO; +Inzo Antifun141.7 GM TOP; +PANT40 PO; +TORSE20; +Vsl#3 Capsule1 EACH
== END 2018-12-12 23:34 | disposition home or self-care (01) ==
LOC: WOUND 13:15
DX: L89.623 Pressure ulcer of left heel, stage 3 (principal); L89.611 Pressure ulcer of right heel, stage 1; E11.622 Type 2 diabetes mellitus with other skin ulcer; L97.822 Non-pressure chronic ulcer of other part of left lower leg with fat layer exposed; E11.40 Type 2 diabetes mellitus with diabetic neuropathy, unspecified; I12.0 Hypertensive chronic kidney disease with stage 5 chronic kidney disease or end stage renal disease; E11.22 Type 2 diabetes mellitus with diabetic chronic kidney disease; N18.6 End stage renal disease; D63.1 Anemia in chronic kidney disease
CPT/HCPCS: G0463

== ENCOUNTER 2018-12-19 13:20 | Day surgery (SDC) | payer MEDICARE, OTHER | END 2018-12-19 22:52 | disposition home or self-care (01) | LOC: WOUND 13:20 | DX: E11.621 Type 2 diabetes mellitus with foot ulcer (principal); L89.623 Pressure ulcer of left heel, stage 3; L89.611 Pressure ulcer of right heel, stage 1; E11.622 Type 2 diabetes mellitus with other skin ulcer; L97.822 Non-pressure chronic ulcer of other part of left lower leg with fat layer exposed; I10 Essential (primary) hypertension; Z48.00 Encounter for change or removal of nonsurgical wound dressing | CPT/HCPCS: G0463 ==

== ENCOUNTER 2018-12-26 13:25 | Day surgery (SDC) | payer MEDICARE, OTHER | END 2018-12-26 23:07 | disposition home or self-care (01) | LOC: WOUND 13:25 | DX: L89.623 Pressure ulcer of left heel, stage 3 (principal); L89.611 Pressure ulcer of right heel, stage 1; E11.621 Type 2 diabetes mellitus with foot ulcer; E11.22 Type 2 diabetes mellitus with diabetic chronic kidney disease; E11.40 Type 2 diabetes mellitus with diabetic neuropathy, unspecified; L97.822 Non-pressure chronic ulcer of other part of left lower leg with fat layer exposed; I12.0 Hypertensive chronic kidney disease with stage 5 chronic kidney disease or end stage renal disease; N18.6 End stage renal disease; M06.9 Rheumatoid arthritis, unspecified; D50.9 Iron deficiency anemia, unspecified; K74.60 Unspecified cirrhosis of liver; I89.0 Lymphedema, not elsewhere classified; E66.9 Obesity, unspecified; Z68.43 Body mass index [BMI] 50.0-59.9, adult ==

== ENCOUNTER 2019-01-16 00:24 | Day surgery (SDC) | payer MEDICARE, OTHER | END 2019-01-16 22:49 | disposition home or self-care (01) | LOC: WOUND 00:24 | DX: L89.623 Pressure ulcer of left heel, stage 3 (principal); E11.621 Type 2 diabetes mellitus with foot ulcer; I10 Essential (primary) hypertension; D50.9 Iron deficiency anemia, unspecified; E66.9 Obesity, unspecified; Z87.81 Personal history of (healed) traumatic fracture ==

== ENCOUNTER 2019-01-30 13:05 | Day surgery (SDC) | payer MEDICARE, OTHER | END 2019-01-30 22:51 | disposition home or self-care (01) | LOC: WOUND 13:05 | DX: L89.623 Pressure ulcer of left heel, stage 3 (principal); E11.622 Type 2 diabetes mellitus with other skin ulcer; L97.821 Non-pressure chronic ulcer of other part of left lower leg limited to breakdown of skin; I10 Essential (primary) hypertension; D50.9 Iron deficiency anemia, unspecified; E66.9 Obesity, unspecified | CPT/HCPCS: G0463 ==

== ENCOUNTER 2019-02-06 00:20 | Day surgery (SDC) | payer MEDICARE, OTHER | END 2019-02-06 23:08 | disposition home or self-care (01) | LOC: WOUND | DX: L89.623 Pressure ulcer of left heel, stage 3 (principal); E11.622 Type 2 diabetes mellitus with other skin ulcer; L97.829 Non-pressure chronic ulcer of other part of left lower leg with unspecified severity; E11.621 Type 2 diabetes mellitus with foot ulcer; I10 Essential (primary) hypertension; E11.51 Type 2 diabetes mellitus with diabetic peripheral angiopathy without gangrene ==

== ENCOUNTER 2019-02-13 00:48 | Day surgery (SDC) | payer MEDICARE, OTHER | END 2019-02-13 22:46 | disposition home or self-care (01) | LOC: WOUND 00:48 | DX: L89.623 Pressure ulcer of left heel, stage 3 (principal); E11.621 Type 2 diabetes mellitus with foot ulcer; E11.622 Type 2 diabetes mellitus with other skin ulcer; L97.521 Non-pressure chronic ulcer of other part of left foot limited to breakdown of skin; L97.829 Non-pressure chronic ulcer of other part of left lower leg with unspecified severity; E11.51 Type 2 diabetes mellitus with diabetic peripheral angiopathy without gangrene; I73.9 Peripheral vascular disease, unspecified; E11.40 Type 2 diabetes mellitus with diabetic neuropathy, unspecified; I12.0 Hypertensive chronic kidney disease with stage 5 chronic kidney disease or end stage renal disease; E11.22 Type 2 diabetes mellitus with diabetic chronic kidney disease; N18.6 End stage renal disease; D50.9 Iron deficiency anemia, unspecified; E66.9 Obesity, unspecified; Z68.43 Body mass index [BMI] 50.0-59.9, adult ==

== ENCOUNTER 2019-02-16 07:49 | Emergency (ER) | payer MEDICARE, OTHER ==
[~2019-02-16] VITALS: Ht 152.4 cm; Wt 90.7 kg
[2019-02-16 08:15] LABS: Source, Urine Catheter
[2019-02-16 08:18] LABS: Bilirubin, Urine Neg (Neg); Blood, Urine 4+ (Neg); Glucose Qualitative, Urine Neg (Neg); Ketones, Urine Neg (Neg); Leukocyte Esterase, Urine 3+ (Neg); Nitrite, Urine Pos (Neg); Protein, Urine 3+ (Neg); Urobilinogen, Urine NORM (Normal)
[2019-02-16 08:25] LABS: Appearance, Urine Turbid (Clear); Color, Urine Yellow (P-Yellow); White Blood Cells, Urine TNTC /hpf (0-5)
[2019-02-16 08:26] LABS: Bacteria Many /hpf; Red Blood Cells, Urine TNTC /hpf (0-2); Squamous Epithelial Cells Few /hpf (Few)
[2019-02-16 08:37] LABS: BASOPHILS ABSOLUTE AUTO 0.02 K/mm3 (0.00-0.23); BASOPHILS PERCENT AUTO 0 % (0-2); EOSINOPHILS ABSOLUTE AUTO 0.16 K/mm3 (0.00-0.68); EOSINOPHILS PERCENT AUTO 3 % (0-6); Hematocrit 42.5 % (33.0-51.0); Hemoglobin 13.2 g/dL (11.5-16.0); IMMATURE GRAN ABSOLUTE AUTO 0.01 K/mm3 (0.00-0.10); IMMATURE GRAN PERCENT AUTO 0 % (0-1); LYMPHOCYTES ABSOLUTE AUTO 1.59 K/mm3 (0.84-5.20); LYMPHOCYTES PERCENT AUTO 33 % (21-46); MONOCYTES ABSOLUTE AUTO 0.49 K/mm3 (0.16-1.47); MONOCYTES PERCENT AUTO 10 % (4-13); Mean Corpuscular HGB 25.9 pg (26.0-34.0); Mean Corpuscular HGB Conc 31.1 g/dL (31.5-36.5); Mean Corpuscular Volume 84 fL (80-100); Mean Platelet Volume 10.9 fL (9.1-12.4); NEUTROPHILS ABSOLUTE AUTO 2.53 K/mm3 (1.96-9.15); NEUTROPHILS PERCENT AUTO 53 % (41-73); Platelet Count 93 K/mm3 (150-400); RDW Coefficient Variation 20.1 % (11.7-14.2); RDW Standard Deviation 61.6 fL (35.1-46.3); Red Blood Cell Count 5.09 M/mm3 (3.80-5.20)
[2019-02-16] MEDS ORDERED: BACL10 PO (08:51)
[2019-02-16] MEDS ORDERED: EUTHYROX125 MCG PO (08:55)
[2019-02-16 08:56] LABS: Albumin, Blood 4.2 g/dL (3.4-5.0); Bilirubin, Total 0.8 mg/dL (0.1-1.0); Bun/Creatinine Ratio 44.4 (12.0-20.0); Calcium, Blood 9.4 mg/dL (8.5-10.1); Creatinine, Blood 1.24 mg/dL (0.40-1.00); Globulin, Blood 4.3 g/dL (2.2-4.0); Potassium, Blood 3.3 mmol/L (3.5-5.5); Total Protein, Blood 8.5 g/dL (6.4-8.2)
[2019-02-16] MEDS ORDERED: ELIQUIS2.5 MG PO (08:57)
[2019-02-16] MEDS ORDERED: GABA300 PO (08:58)
== END 2019-02-16 10:39 | disposition home or self-care (01) ==
LOC: ER 07:49
PROVIDERS: Emergency Medicine
DX: N39.0 Urinary tract infection, site not specified (principal); I48.91 Unspecified atrial fibrillation; E03.9 Hypothyroidism, unspecified; E11.22 Type 2 diabetes mellitus with diabetic chronic kidney disease; N18.9 Chronic kidney disease, unspecified; F32.9 Major depressive disorder, single episode, unspecified; R41.82 Altered mental status, unspecified; Z88.8 Allergy status to other drugs, medicaments and biological substances; Z79.899 Other long term (current) drug therapy; Z79.01 Long term (current) use of anticoagulants; Z79.4 Long term (current) use of insulin
CPT/HCPCS: 36415; 71045; 80053; 81001; 85025; 87077; 87086; 87186; 96365; 99285-25; J0696

== ENCOUNTER 2019-02-27 00:38 | Day surgery (SDC) | payer MEDICARE, OTHER ==
[~2019-02-27 00:38] MED LIST changes: +EUTHYROX125 MCG PO
== END 2019-02-27 22:48 | disposition home or self-care (01) ==
LOC: WOUND 00:38
DX: L89.623 Pressure ulcer of left heel, stage 3 (principal); E11.622 Type 2 diabetes mellitus with other skin ulcer; L97.801 Non-pressure chronic ulcer of other part of unspecified lower leg limited to breakdown of skin; E11.51 Type 2 diabetes mellitus with diabetic peripheral angiopathy without gangrene; I73.9 Peripheral vascular disease, unspecified; E11.40 Type 2 diabetes mellitus with diabetic neuropathy, unspecified; I12.0 Hypertensive chronic kidney disease with stage 5 chronic kidney disease or end stage renal disease; E11.22 Type 2 diabetes mellitus with diabetic chronic kidney disease; N18.6 End stage renal disease
CPT/HCPCS: G0463

== ENCOUNTER 2019-03-15 18:56 | Emergency (ER) | payer MEDICARE, OTHER ==
[~2019-03-15] VITALS: Ht 152.4 cm; Wt 117.5 kg
[2019-03-15 20:04] LABS: BASOPHILS ABSOLUTE AUTO 0.01 K/mm3 (0.00-0.23); BASOPHILS PERCENT AUTO 0 % (0-2); EOSINOPHILS ABSOLUTE AUTO 0.07 K/mm3 (0.00-0.68); EOSINOPHILS PERCENT AUTO 2 % (0-6); Hematocrit 35.3 % (33.0-51.0); Hemoglobin 11.1 g/dL (11.5-16.0); IMMATURE GRAN ABSOLUTE AUTO 0.02 K/mm3 (0.00-0.10); IMMATURE GRAN PERCENT AUTO 1 % (0-1); LYMPHOCYTES ABSOLUTE AUTO 0.94 K/mm3 (0.84-5.20); LYMPHOCYTES PERCENT AUTO 21 % (21-46); MONOCYTES ABSOLUTE AUTO 0.32 K/mm3 (0.16-1.47); MONOCYTES PERCENT AUTO 7 % (4-13); Mean Corpuscular HGB 28.2 pg (26.0-34.0); Mean Corpuscular HGB Conc 31.4 g/dL (31.5-36.5); Mean Corpuscular Volume 90 fL (80-100); Mean Platelet Volume 10.9 fL (9.1-12.4); NEUTROPHILS ABSOLUTE AUTO 3.07 K/mm3 (1.96-9.15); NEUTROPHILS PERCENT AUTO 69 % (41-73); Platelet Count 82 K/mm3 (150-400); RDW Coefficient Variation 16.8 % (11.7-14.2); RDW Standard Deviation 55.5 fL (35.1-46.3); Red Blood Cell Count 3.93 M/mm3 (3.80-5.20); White Blood Cell Count 4.43 K/mm3 (4.00-11.30)
[2019-03-15 20:18] LABS: Alanine Aminotransfer (ALT/SGP 36 U/L (12-78); Albumin, Blood 3.5 g/dL (3.4-5.0); Alk Phos 132 U/L (50-136); Anion Gap 5 mmol/L (6-16); Aspartate Aminotrans (AST/SGOT 37 U/L (12-37); Bilirubin, Total 0.7 mg/dL (0.1-1.0); Blood Urea Nitrogen 31 mg/dL (8-24); Bun/Creatinine Ratio 29.5 (12.0-20.0); CO2, Blood 28 mmol/L (21-32); Calcium, Blood 8.9 mg/dL (8.5-10.1); Chloride, Blood 106 mmol/L (98-108); Creatinine, Blood 1.05 mg/dL (0.40-1.00); Globulin, Blood 3.5 g/dL (2.2-4.0); Glomerular Filtration Rate 55 (60-); Glucose, Blood 128 mg/dL (70-99); Sodium, Blood 139 mmol/L (136-145); Troponin I <0.015 ng/mL (0.000-0.040)
== END 2019-03-15 22:41 | disposition home or self-care (01) ==
LOC: ER 18:56
PROVIDERS: Emergency Medicine
DX: I50.9 Heart failure, unspecified (principal); I48.91 Unspecified atrial fibrillation; E03.9 Hypothyroidism, unspecified; E11.22 Type 2 diabetes mellitus with diabetic chronic kidney disease; N18.3 Chronic kidney disease, stage 3 (moderate); F32.9 Major depressive disorder, single episode, unspecified; R60.0 Localized edema; Z87.440 Personal history of urinary (tract) infections; Z88.8 Allergy status to other drugs, medicaments and biological substances; Z79.899 Other long term (current) drug therapy; Z79.01 Long term (current) use of anticoagulants; Z79.4 Long term (current) use of insulin
CPT/HCPCS: 36415; 71046; 80053; 83880; 84484; 85025; 93005; 93010; 96374; 99284-25; J1940

== ENCOUNTER 2019-04-02 11:26 | Inpatient (IN) | payer MEDICARE, OTHER ==
[~2019-04-02] VITALS: Ht 152.4 cm; Wt 107.5 kg
[2019-04-02 12:17] LABS: Source, Urine Catheter
[2019-04-02 12:26] LABS: Bilirubin, Urine Neg (Neg); Blood, Urine 3+ (Neg); Glucose Qualitative, Urine Neg (Neg); Ketones, Urine Neg (Neg); Leukocyte Esterase, Urine 3+ (Neg); Nitrite, Urine Neg (Neg); Protein, Urine 2+ (Neg); Urobilinogen, Urine NORM (Normal)
[2019-04-02 12:33] LABS: BASOPHILS ABSOLUTE AUTO 0.02 K/mm3 (0.00-0.23); BASOPHILS PERCENT AUTO 0 % (0-2); EOSINOPHILS ABSOLUTE AUTO 0.06 K/mm3 (0.00-0.68); EOSINOPHILS PERCENT AUTO 1 % (0-6); Hematocrit 42.3 % (33.0-51.0); Hemoglobin 13.5 g/dL (11.5-16.0); IMMATURE GRAN ABSOLUTE AUTO 0.02 K/mm3 (0.00-0.10); IMMATURE GRAN PERCENT AUTO 0 % (0-1); LYMPHOCYTES ABSOLUTE AUTO 1.31 K/mm3 (0.84-5.20); LYMPHOCYTES PERCENT AUTO 22 % (21-46); MONOCYTES PERCENT AUTO 9 % (4-13); Mean Corpuscular HGB Conc 31.9 g/dL (31.5-36.5); Mean Corpuscular Volume 88 fL (80-100); Mean Platelet Volume 11.3 fL (9.1-12.4); NEUTROPHILS ABSOLUTE AUTO 3.95 K/mm3 (1.96-9.15); NEUTROPHILS PERCENT AUTO 68 % (41-73); Platelet Count 114 K/mm3 (150-400); RDW Coefficient Variation 16.3 % (11.7-14.2); RDW Standard Deviation 51.3 fL (35.1-46.3); Red Blood Cell Count 4.83 M/mm3 (3.80-5.20); White Blood Cell Count 5.86 K/mm3 (4.00-11.30)
[2019-04-02 12:48] LABS: Appearance, Urine Turbid (Clear); Color, Urine Yellow (P-Yellow)
[2019-04-02 12:53] LABS: White Blood Cells, Urine TNTC /hpf (0-5)
[2019-04-02 12:54] LABS: Bacteria Many /hpf; Squamous Epithelial Cells Few /hpf (Few); Transitional Epithelial Cells Rare /hpf (0-Rare)
[2019-04-02 12:57] LABS: Albumin, Blood 4.3 g/dL (3.4-5.0); Bilirubin, Total 0.9 mg/dL (0.1-1.0); Bun/Creatinine Ratio 36.6 (12.0-20.0); Calcium, Blood 9.9 mg/dL (8.5-10.1); Creatinine, Blood 1.72 mg/dL (0.40-1.00); Globulin, Blood 4.3 g/dL (2.2-4.0); Potassium, Blood 3.4 mmol/L (3.5-5.5); Total Protein, Blood 8.6 g/dL (6.4-8.2)
[2019-04-02] MEDS ORDERED: INSUGL100V SC (15:30)
[2019-04-02] MEDS ORDERED: Humalog100 UNIT/3 SC ×2 (15:31)
[2019-04-02] MEDS ORDERED: Vitamin D2000 UNIT PO (15:33)
[2019-04-02] MEDS ORDERED: Bumetanide2 MG PO ×2 (15:33→15:37)
[2019-04-02] MEDS ORDERED: Calcium +D & M1 EACH PO (15:34)
[2019-04-02] MEDS ORDERED: POTCHL20ER PO (15:34)
[2019-04-02] MEDS ORDERED: ROPI.25 PO (15:35)
[2019-04-02] MEDS ORDERED: DULO60 PO (15:35)
[2019-04-02] MEDS ORDERED: Zocor20 MG PO (15:36)
[2019-04-02] MEDS ORDERED: METO5 PO (15:36)
[2019-04-02] MEDS ORDERED: FERSU300 PO (15:37)
[2019-04-02] MEDS ORDERED: ACET325 PO (15:39)
[2019-04-02] MEDS ORDERED: ALBU3IS NEB (15:39)
[2019-04-02] MEDS ORDERED: TRAM50 PO (15:40)
[2019-04-02] MEDS ORDERED: VISINE DRY EYE15 ML BOTHEYES (15:41)
[2019-04-02] MEDS ORDERED: HYDCOR2.5C TOP (15:43)
--- NOTE | 2019-04-03 04:23 | NUR ---
SHIFT SUMMARY- PT. SLEPT ON/OFF DURING THE NIGHT, NO APPARENT DISTRESS NOTED. A&OX3, 2 PERSON ASSIST FOR Q2HR TURNS IN BED. PT. NON-AMBULATORY DUE TO NEAL ANKLE FX'S. LACTULOSE AND SCHEDULED MEDS GIVEN, TOLERATED WELL. PT. HAD 1 LARGE WATERY BM IN BRIEF. DENIES ANY PAIN OR DISCOMFORT. IV FLUIDS INFUSING. CALL LIGHT WITHIN REACH AND SIDE RAILS UP X2. WILL CONT TO MONITOR.
[2019-04-03 05:50] LABS: Albumin, Blood 3.9 g/dL (3.4-5.0); Albumin/Globulin Ratio 1.1 (0.8-1.8); Bilirubin, Total 0.9 mg/dL (0.1-1.0); Bun/Creatinine Ratio 40.5 (12.0-20.0); Calcium, Blood 9.2 mg/dL (8.5-10.1); Creatinine, Blood 1.63 mg/dL (0.40-1.00); Globulin, Blood 3.7 g/dL (2.2-4.0); Total Protein, Blood 7.6 g/dL (6.4-8.2)
[2019-04-03 05:52] LABS: BASOPHILS ABSOLUTE AUTO 0.02 K/mm3 (0.00-0.23); BASOPHILS PERCENT AUTO 0 % (0-2); EOSINOPHILS ABSOLUTE AUTO 0.17 K/mm3 (0.00-0.68); EOSINOPHILS PERCENT AUTO 2 % (0-6); Hematocrit 38.4 % (33.0-51.0); Hemoglobin 12.7 g/dL (11.5-16.0); IMMATURE GRAN ABSOLUTE AUTO 0.02 K/mm3 (0.00-0.10); IMMATURE GRAN PERCENT AUTO 0 % (0-1); LYMPHOCYTES ABSOLUTE AUTO 1.93 K/mm3 (0.84-5.20); LYMPHOCYTES PERCENT AUTO 25 % (21-46); MONOCYTES ABSOLUTE AUTO 0.69 K/mm3 (0.16-1.47); MONOCYTES PERCENT AUTO 9 % (4-13); Mean Corpuscular HGB 28.1 pg (26.0-34.0); Mean Corpuscular HGB Conc 33.1 g/dL (31.5-36.5); Mean Platelet Volume 10.9 fL (9.1-12.4); NEUTROPHILS ABSOLUTE AUTO 4.78 K/mm3 (1.96-9.15); NEUTROPHILS PERCENT AUTO 63 % (41-73); Platelet Count 113 K/mm3 (150-400); RDW Coefficient Variation 16.6 % (11.7-14.2); Red Blood Cell Count 4.52 M/mm3 (3.80-5.20); White Blood Cell Count 7.61 K/mm3 (4.00-11.30)
[2019-04-03 05:53] LABS: Potassium, Blood 2.4 mmol/L (3.5-5.5)
[2019-04-03 05:55] LABS: Mean Corpuscular Volume 85 fL (80-100)
--- NOTE | 2019-04-03 17:11 | NUR ---
PATIENT A/OX4, SLOW TO RESPOND AT TIMES. PATIENT IS CHAIRFAST AT BASELINE AND IS ABLE TO PIVOT TX 2 ASSIST AND FWW TO CHAIR OR LIFT. AMMONIA LEVEL COMING DOWN WITH LACTULOSE. K+ 2.4 THIS AM AND WAS REPLACED. DENIES ANY PAIN. 22G IV TO R HAND, NS @ 75ML HOUR INFUSING. ACHS BLOOD SUGARS, COVERAGE WITH LANTUS AND HUMALOG. ROCEPHIN TO TREAT UTI. PATIENT IS CALM AND COOPERATIVE WITH CARE AND CALLS APPROPRIATELY FOR ASSISTANCE.
[2019-04-03 17:14] LABS: Bun/Creatinine Ratio 43.3 (12.0-20.0); Calcium, Blood 8.8 mg/dL (8.5-10.1); Creatinine, Blood 1.34 mg/dL (0.40-1.00); Potassium, Blood 3.2 mmol/L (3.5-5.5)
--- NOTE | 2019-04-03 17:59 | NUR ---
Pt visit this evening. Pt sitting in chair upon arrival and appears comfortable. Pt is A&O but struggles intermitently with confusion. Her level of understanding is questionable and when responding to questions regarding her chronic illnesses Pt is unable to respond appropriately. She ponders the question then responds by stating "my and son are moving me to [facility]". Pt denies pain, nausea, anxiety, and dyspnea at this time. Discussed case with bedside nurse Cristina. Palliative Care will F/U when family is present to discuss advanced care planning.
--- NOTE | 2019-04-03 18:09 | NUR ---
Spiritual cAre initial note: Dona was alone in room at time of visit. She is soft-spoken with a gentle demeanor. She is often slow to respopnd and appears pleasantly confused. She beleives she is going to live at [facility] and her has to move there too. Dona expressd love for her and son. She denies pain and fear. She responded well to gentle spiritual insurance counselor and prayer. We had an easy rapport, and I will remain available.
--- NOTE | 2019-04-04 04:43 | NUR ---
SHIFT SUMMARY- NO ACUTE EVENTS OVERNIGHT. PT. A&O RECEIVING IV FLUIDS AND ROCEPHIN FOR UTI. DENIED ANY PAIN OR DISCOMFORT T/O THE NIGHT. HELD LACTULOSE, PT WITH SOME LOOSE STOOLS. AMMONIA LEVEL SHOWING IMPROVEMENT. POSSIBLE D/C TO [facility] TODAY. PT. IS RESTING COMFORTABLY IN BED, NO APPARENT DISTRESS NOTED. CALL LIGHT WITIN REACH AND SIDE RAILS UP X2. WILL CONT TO MONITOR.
[2019-04-04 05:34] LABS: Bun/Creatinine Ratio 40.9 (12.0-20.0); Calcium, Blood 8.7 mg/dL (8.5-10.1); Creatinine, Blood 1.1 mg/dL (0.40-1.00); Magnesium, Blood 2.1 mg/dL (1.6-2.4)
[2019-04-04] MEDS ORDERED: LACT10SY PO (10:11)
[2019-04-04] MEDS ORDERED: Florastor250 MG PO (10:11)
--- NOTE | 2019-04-04 12:01 | NUR ---
DISCHARGE: PATIENT DISCHARGED BACK TO [facility] PER MD ORDERS AND CARE MANAGEMENT. PATIENT ALERT AND ORIENTED THIS MORNING, WITH THE EXCEPTION OF THINKING THAT SHE IS HEADED BACK TO [facility]. RN DOUBLE CHECKED THE ORDERS AND SPOKE WITH RENATA Quintanilla FROM CARE MANAGEMENT. RN RECEIVED A CALL FROM PATIENT'S PADDER AT [facility] THAT EXPRESSED CONCERN THAT THE PATIENT WAS NOT RECEIVING ADEQUATE CARE AT [facility]. PASSED THIS INFORMATION ON TO THE IMAGING SCHEDULER AT [facility]. PATIENT'S FAMILY IS SATISFIED WITH [facility] AND PATIENT HAS BEEN ACCEPTED BACK TO THE FACILITY. PATIENT DENIED PAIN OR DISCOMFORT THROUGHOUT SHIFT. PATIENT ABLE TO MAKE NEEDS KNOWN. PATIENT TOLERATING FLUID RESTRICTION WELL. PATIENT DISCHARGED WITH [facility] IN [facility]. PATIENT DISCHARGE INSTRUCTIONS AND PRESCRIPTIONS FAXED TO [facility]. DISCHARGE REPORT CALLED TO [facility].
== END 2019-04-04 11:50 | disposition home or self-care (01) | DRG 441 ==
LOC: ER 11:26 → MEDS 15:09 → ENPENDDIS 04-04 09:52 → MEDS 04-04 11:50
PROVIDERS: Emergency Medicine; ADMIT Internal Medicine
DX: K72.00 Acute and subacute hepatic failure without coma (principal); G92 Toxic encephalopathy; N39.0 Urinary tract infection, site not specified; N17.9 Acute kidney failure, unspecified; I50.32 Chronic diastolic (congestive) heart failure; I48.20 Chronic atrial fibrillation, unspecified; K76.6 Portal hypertension; E11.22 Type 2 diabetes mellitus with diabetic chronic kidney disease; N18.3 Chronic kidney disease, stage 3 (moderate); Z79.4 Long term (current) use of insulin; F32.9 Major depressive disorder, single episode, unspecified; B18.2 Chronic viral hepatitis C; E03.9 Hypothyroidism, unspecified; D69.6 Thrombocytopenia, unspecified; G25.81 Restless legs syndrome; J44.9 Chronic obstructive pulmonary disease, unspecified; K74.60 Unspecified cirrhosis of liver
CPT/HCPCS: 36415; 71045; 76770; 80048; 80053; 81001; 82140; 82947; 83735; 85025; 87081; 87086; 90686; 93005; 93010; 96365; 97110; 97162; 97166; 97530; 99285-25; J0696; J1650; J1815; J3480; J7030; P9612

== ENCOUNTER 2019-04-21 19:31 | Emergency (ER) | payer MEDICARE, OTHER ==
[~2019-04-21] VITALS: Ht 152.4 cm; Wt 81.7 kg
[~2019-04-21 19:31] MED LIST changes: +ALBU3IS NEB; +Bumetanide2 MG PO; +Calcium +D & M1 EACH PO; +FERSU300 PO; +Florastor250 MG PO; +HYDCOR2.5C TOP; +INSUGL100V SC; +LACT10SY PO; +METO5 PO; +POTCHL20ER PO; +VISINE DRY EYE15 ML BOTHEYES; +Vitamin D2000 UNIT PO
[2019-04-21 20:19] LABS: BASOPHILS ABSOLUTE AUTO 0.02 K/mm3 (0.00-0.23); BASOPHILS PERCENT AUTO 0 % (0-2); EOSINOPHILS ABSOLUTE AUTO 0.11 K/mm3 (0.00-0.68); EOSINOPHILS PERCENT AUTO 2 % (0-6); Hematocrit 40.4 % (33.0-51.0); Hemoglobin 13.1 g/dL (11.5-16.0); IMMATURE GRAN ABSOLUTE AUTO 0.01 K/mm3 (0.00-0.10); IMMATURE GRAN PERCENT AUTO 0 % (0-1); LYMPHOCYTES ABSOLUTE AUTO 1.65 K/mm3 (0.84-5.20); LYMPHOCYTES PERCENT AUTO 31 % (21-46); MONOCYTES ABSOLUTE AUTO 0.44 K/mm3 (0.16-1.47); MONOCYTES PERCENT AUTO 8 % (4-13); Mean Corpuscular HGB 28.9 pg (26.0-34.0); Mean Corpuscular HGB Conc 32.4 g/dL (31.5-36.5); Mean Corpuscular Volume 89 fL (80-100); Mean Platelet Volume 11.6 fL (9.1-12.4); NEUTROPHILS ABSOLUTE AUTO 3.09 K/mm3 (1.96-9.15); NEUTROPHILS PERCENT AUTO 58 % (41-73); Platelet Count 85 K/mm3 (150-400); RDW Coefficient Variation 16.3 % (11.7-14.2); RDW Standard Deviation 53.1 fL (35.1-46.3); Red Blood Cell Count 4.53 M/mm3 (3.80-5.20); White Blood Cell Count 5.32 K/mm3 (4.00-11.30)
[2019-04-21 20:30] LABS: Alanine Aminotransfer (ALT/SGP 42 U/L (12-78); Albumin, Blood 3.8 g/dL (3.4-5.0); Alk Phos 103 U/L (50-136); Anion Gap 7 mmol/L (6-16); Aspartate Aminotrans (AST/SGOT 47 U/L (12-37); Bilirubin, Total 0.8 mg/dL (0.1-1.0); Blood Urea Nitrogen 29 mg/dL (8-24); Bun/Creatinine Ratio 26.9 (12.0-20.0); CO2, Blood 31 mmol/L (21-32); Calcium, Blood 10.9 mg/dL (8.5-10.1); Chloride, Blood 99 mmol/L (98-108); Creatinine, Blood 1.08 mg/dL (0.40-1.00); Globulin, Blood 3.8 g/dL (2.2-4.0); Glomerular Filtration Rate 53 (60-); Glucose, Blood 88 mg/dL (70-99); Potassium, Blood 3.5 mmol/L (3.5-5.5); Sodium, Blood 137 mmol/L (136-145); Total Protein, Blood 7.6 g/dL (6.4-8.2)
[2019-04-21 20:55] LABS: Source, Urine Catheter
[2019-04-21 21:01] LABS: Bilirubin, Urine Neg (Neg); Blood, Urine Neg (Neg); Glucose Qualitative, Urine Neg (Neg); Ketones, Urine Neg (Neg); Leukocyte Esterase, Urine 1+ (Neg); Nitrite, Urine Neg (Neg); Protein, Urine Neg (Neg); Urobilinogen, Urine NORM (Normal)
[2019-04-21 21:11] LABS: Appearance, Urine Clear (Clear); Color, Urine Yellow (P-Yellow)
[2019-04-21 21:12] LABS: Bacteria Rare /hpf; Red Blood Cells, Urine Not Seen /hpf (0-2); Squamous Epithelial Cells Few /hpf (Few); White Blood Cells, Urine Rare /hpf (0-5)
[2019-04-21] MEDS ORDERED: LEVSOD125 PO (21:22)
[2019-04-21] MEDS ORDERED: HORIZANT300 MG PO (21:23)
[2019-04-21] MEDS ORDERED: ELIQUIS2.5 MG PO (21:23)
[2019-04-21] MEDS ORDERED: TORSE20 PO (21:23)
[2019-04-21] MEDS ORDERED: METO5 PO (21:24)
[2019-04-21] MEDS ORDERED: Protonix40 MG PO (21:24)
[2019-04-21] MEDS ORDERED: Spironolactone25 MG PO (21:25)
[2019-04-21 21:46] LABS: Troponin I <0.015 ng/mL (0.000-0.040)
== END 2019-04-21 23:29 | disposition home or self-care (01) ==
LOC: ER 19:31
PROVIDERS: Emergency Medicine
DX: E86.0 Dehydration (principal); R41.82 Altered mental status, unspecified; E72.20 Disorder of urea cycle metabolism, unspecified; E11.9 Type 2 diabetes mellitus without complications; Z87.440 Personal history of urinary (tract) infections; Z88.8 Allergy status to other drugs, medicaments and biological substances; Z79.899 Other long term (current) drug therapy; Z79.4 Long term (current) use of insulin
CPT/HCPCS: 36415; 80053; 81001; 82140; 84484; 85025; 87086; 93005; 93010; 96360; 99284-25; J7120; P9612

== ENCOUNTER 2019-04-27 13:01 | Emergency (ER) | payer MEDICARE, OTHER ==
[~2019-04-27] VITALS: Ht 152.4 cm; Wt 81.7 kg
[~2019-04-27 13:01] MED LIST changes: -ALBU3IS NEB; +BASAGLAR K100 UNIT/1 SC; -INSUGL100V SC; +Protonix40 MG PO; +SPIR25 PO; +TORSE20 PO
[2019-04-27 13:59] LABS: BASOPHILS ABSOLUTE AUTO 0.02 K/mm3 (0.00-0.23); BASOPHILS PERCENT AUTO 0 % (0-2); EOSINOPHILS ABSOLUTE AUTO 0.08 K/mm3 (0.00-0.68); EOSINOPHILS PERCENT AUTO 2 % (0-6); Hematocrit 39.4 % (33.0-51.0); Hemoglobin 13.2 g/dL (11.5-16.0); IMMATURE GRAN ABSOLUTE AUTO 0.01 K/mm3 (0.00-0.10); IMMATURE GRAN PERCENT AUTO 0 % (0-1); LYMPHOCYTES ABSOLUTE AUTO 1.54 K/mm3 (0.84-5.20); LYMPHOCYTES PERCENT AUTO 29 % (21-46); MONOCYTES ABSOLUTE AUTO 0.51 K/mm3 (0.16-1.47); MONOCYTES PERCENT AUTO 10 % (4-13); Mean Corpuscular HGB 29.3 pg (26.0-34.0); Mean Corpuscular HGB Conc 33.5 g/dL (31.5-36.5); Mean Corpuscular Volume 87 fL (80-100); Mean Platelet Volume 11.9 fL (9.1-12.4); NEUTROPHILS ABSOLUTE AUTO 3.21 K/mm3 (1.96-9.15); NEUTROPHILS PERCENT AUTO 60 % (41-73); Platelet Count 80 K/mm3 (150-400); RDW Coefficient Variation 15.6 % (11.7-14.2); Red Blood Cell Count 4.51 M/mm3 (3.80-5.20); White Blood Cell Count 5.37 K/mm3 (4.00-11.30)
[2019-04-27 14:10] LABS: Albumin, Blood 3.9 g/dL (3.4-5.0); Albumin/Globulin Ratio 1.1 (0.8-1.8); Bilirubin, Total 0.7 mg/dL (0.1-1.0); Bun/Creatinine Ratio 28.5 (12.0-20.0); Calcium, Blood 8.8 mg/dL (8.5-10.1); Creatinine, Blood 1.23 mg/dL (0.40-1.00); Globulin, Blood 3.6 g/dL (2.2-4.0); Potassium, Blood 3.8 mmol/L (3.5-5.5); Total Protein, Blood 7.5 g/dL (6.4-8.2)
[2019-06-25] MEDS ORDERED: METO5 PO (14:21)
[2019-06-25] MEDS ORDERED: THERA-D2000 UNIT PO (14:23)
[2019-06-25] MEDS ORDERED: Humalog100 UNIT/3 SC (14:26)
[2019-06-26] MEDS ORDERED: Bumetanide2 MG PO (11:47)
[2019-06-26] MEDS ORDERED: Duoneb 2.5-0.5 M3 ML INH (11:52)
[2019-06-26] MEDS ORDERED: LACT10SY PO (11:52)
[2019-06-26] MEDS ORDERED: POTCHL20ER PO (11:54)
[2019-06-26] MEDS ORDERED: PROBIOTIC250 MG PO (11:55)
[2019-06-26] MEDS ORDERED: SPIR25 PO (11:55)
== END 2019-04-27 16:42 | disposition home or self-care (01) ==
LOC: ER 13:01
PROVIDERS: Physician Assistant
DX: R51 Headache (principal); E11.22 Type 2 diabetes mellitus with diabetic chronic kidney disease; N18.3 Chronic kidney disease, stage 3 (moderate); I50.30 Unspecified diastolic (congestive) heart failure; I48.91 Unspecified atrial fibrillation; J44.9 Chronic obstructive pulmonary disease, unspecified; F32.9 Major depressive disorder, single episode, unspecified; Z88.8 Allergy status to other drugs, medicaments and biological substances; Z79.899 Other long term (current) drug therapy; Z79.4 Long term (current) use of insulin; Z79.51 Long term (current) use of inhaled steroids
CPT/HCPCS: 36415; 80053; 85025; 96361; 96374; 96375; 99284-25; J0780; J1200; J7030

== ENCOUNTER 2019-05-23 09:16 | Inpatient (IN) | payer MEDICARE, OTHER ==
[~2019-05-23] VITALS: Ht 162.6 cm; Wt 106.4 kg
[2019-05-23 09:46] LABS: BASOPHILS ABSOLUTE AUTO 0.02 K/mm3 (0.00-0.23); BASOPHILS PERCENT AUTO 0 % (0-2); EOSINOPHILS ABSOLUTE AUTO 0.12 K/mm3 (0.00-0.68); EOSINOPHILS PERCENT AUTO 3 % (0-6); Hemoglobin 11.9 g/dL (11.5-16.0); IMMATURE GRAN ABSOLUTE AUTO 0.01 K/mm3 (0.00-0.10); IMMATURE GRAN PERCENT AUTO 0 % (0-1); LYMPHOCYTES ABSOLUTE AUTO 1.31 K/mm3 (0.84-5.20); LYMPHOCYTES PERCENT AUTO 27 % (21-46); MONOCYTES ABSOLUTE AUTO 0.44 K/mm3 (0.16-1.47); MONOCYTES PERCENT AUTO 9 % (4-13); Mean Corpuscular HGB 29.8 pg (26.0-34.0); Mean Corpuscular HGB Conc 32.2 g/dL (31.5-36.5); Mean Corpuscular Volume 93 fL (80-100); Mean Platelet Volume 11.2 fL (9.1-12.4); NEUTROPHILS ABSOLUTE AUTO 2.88 K/mm3 (1.96-9.15); NEUTROPHILS PERCENT AUTO 60 % (41-73); Platelet Count 93 K/mm3 (150-400); RDW Coefficient Variation 15.3 % (11.7-14.2); RDW Standard Deviation 52.4 fL (35.1-46.3); White Blood Cell Count 4.78 K/mm3 (4.00-11.30)
[2019-05-23 10:03] LABS: Albumin, Blood 3.8 g/dL (3.4-5.0); Albumin/Globulin Ratio 1.1 (0.8-1.8); Bilirubin, Total 0.8 mg/dL (0.1-1.0); Bun/Creatinine Ratio 42.1 (12.0-20.0); Calcium, Blood 9.1 mg/dL (8.5-10.1); Creatinine, Blood 1.14 mg/dL (0.40-1.00); Globulin, Blood 3.4 g/dL (2.2-4.0); Potassium, Blood 3.8 mmol/L (3.5-5.5); Total Protein, Blood 7.2 g/dL (6.4-8.2)
[2019-05-23 10:48] LABS: Source, Urine Clean Catch
[2019-05-23 11:03] LABS: Appearance, Urine Cloudy (Clear); Bilirubin, Urine Neg (Neg); Blood, Urine 2+ (Neg); Color, Urine Yellow (P-Yellow); Glucose Qualitative, Urine Neg (Neg); Ketones, Urine Neg (Neg); Leukocyte Esterase, Urine 3+ (Neg); Nitrite, Urine Neg (Neg); Protein, Urine 1+ (Neg); Urobilinogen, Urine NORM (Normal)
[2019-05-23] MEDS ORDERED: BASAGLAR K100 UNIT/2 (11:04)
[2019-05-23] MEDS ORDERED: BACL10 PO (11:17)
[2019-05-23] MEDS ORDERED: ELIQUIS2.5 MG PO (11:19)
[2019-05-23 11:21] LABS: Bacteria Many /hpf; Squamous Epithelial Cells Few /hpf (Few); White Blood Cells, Urine TNTC /hpf (0-5)
[2019-05-23] MEDS ORDERED: PROBIOTIC FORM1 EAC1 PO (11:22)
[2019-05-23] MEDS ORDERED: TRAM50 PO (11:26)
--- NOTE | 2019-05-23 13:50 | NUR ---
PT ARRIVED TO THE MEDICAL FLOOR FROM THE ER VIA STRETCHER, THE PT ON ARRIVAL WAS ASLLEP EASILY AWOKENED, HOWEVER, FEEL RIGHT BACK TO SLEEP, DID NOT APPROPRIATLY ANSWER QUESTIONS, THE PT WAS ORIENTED TO THE CALL SYSTEM, THE PT APPEARS TO BE BREATHING EASILY ON RA
[2019-05-23] MEDS ORDERED: MILK OF MA400 MG/5 M PO (14:26)
[2019-05-23] MEDS ORDERED: Fleet Enema132 ML PR (14:26)
[2019-05-23] MEDS ORDERED: BISA10S PR (14:27)
--- NOTE | 2019-05-23 16:21 | NUR ---
PT IS A/OX3, PLEASANT AND COOPERATIVE, THE PT IS NOW MORE AWAKE, ABLE TO ANSWER QUESTIONS, ABLE TO EAT AND DRINK WITHOUT INCIDENT OR COUGH, THE PT WAS REOIRIENTED TO THE ROOM CALL SYSTEM AND LAYOUT, THE APPEARS TO BE BREATHING EASILY ON O2 2L/MIN AT THIS TIME, THE PT REPORTS THAT SHE IS NOT ABLE TO STAND WITHOUT ASSISTANCE, THE PTS BED ALARM IS ON, CALL LIGHT IN REACH WILL CONTINUE TO MONITOR AND ASSESS FOR CHANGES
[2019-05-24 04:53] LABS: BASOPHILS ABSOLUTE AUTO 0.03 K/mm3 (0.00-0.23); BASOPHILS PERCENT AUTO 1 % (0-2); EOSINOPHILS ABSOLUTE AUTO 0.11 K/mm3 (0.00-0.68); EOSINOPHILS PERCENT AUTO 2 % (0-6); Hematocrit 33.6 % (33.0-51.0); Hemoglobin 10.9 g/dL (11.5-16.0); IMMATURE GRAN ABSOLUTE AUTO 0.02 K/mm3 (0.00-0.10); IMMATURE GRAN PERCENT AUTO 0 % (0-1); LYMPHOCYTES ABSOLUTE AUTO 1.35 K/mm3 (0.84-5.20); LYMPHOCYTES PERCENT AUTO 26 % (21-46); MONOCYTES ABSOLUTE AUTO 0.48 K/mm3 (0.16-1.47); MONOCYTES PERCENT AUTO 9 % (4-13); Mean Corpuscular HGB 29.4 pg (26.0-34.0); Mean Corpuscular HGB Conc 32.4 g/dL (31.5-36.5); Mean Corpuscular Volume 91 fL (80-100); Mean Platelet Volume 11.5 fL (9.1-12.4); NEUTROPHILS ABSOLUTE AUTO 3.27 K/mm3 (1.96-9.15); NEUTROPHILS PERCENT AUTO 62 % (41-73); Platelet Count 85 K/mm3 (150-400); RDW Coefficient Variation 15.2 % (11.7-14.2); RDW Standard Deviation 50.6 fL (35.1-46.3); Red Blood Cell Count 3.71 M/mm3 (3.80-5.20); White Blood Cell Count 5.26 K/mm3 (4.00-11.30)
[2019-05-24 05:12] LABS: Albumin, Blood 3.6 g/dL (3.4-5.0); Bilirubin, Total 1.1 mg/dL (0.1-1.0); Bun/Creatinine Ratio 38.6 (12.0-20.0); Calcium, Blood 8.4 mg/dL (8.5-10.1); Creatinine, Blood 1.14 mg/dL (0.40-1.00); Globulin, Blood 3.5 g/dL (2.2-4.0); Potassium, Blood 3.9 mmol/L (3.5-5.5); Total Protein, Blood 7.1 g/dL (6.4-8.2)
--- NOTE | 2019-05-24 06:16 | NUR ---
SHIFT SUMMARY AOX4, CAN STATE PLACE, SITUATION, DATE, PRESIDENT, SELF. ANSWERED ALL QUESTIONS APPROPRIATELY & FOLLOWS DIRECTIONS. DOES STUTTER W/SPEECH @TIMES. INCONTINENT OF BM & HAD MULTIPLE SOFT BROWN BM. REGAN IS PATENT & DRAINING CLEAR YELLOW URINE. TELE IN PLACE, RUNNING NSR W/PAC HR 64. ON 2L O2 VIA NC, DENIES DYSPNEA, N/V, OR PAIN. CALL LIGHT IN REACH & PT USES APPROPRIATELY. I WILL MONITOR UNTIL DAY SHIFT RN ASSUMES CARE.
[2019-05-24] MEDS ORDERED: AZIT500 PO (13:02)
--- NOTE | 2019-05-24 13:58 | NUR ---
DISCHARGE SUMMARY PT DISCHARGED TO HOME, [facility]. PT LEFT ROOM AT 1358 VIA WHEELCHAIR AND TAXI. DISCHARGE INSTRUCTIONS COMPLETED WITH PT. EXTRA COPY OF ORDERS SENT TO BE GIVEN TO NURSE AT FACILITY, PT AGREES. PT EDUCATED ON NEW MEDICATIONS AND ALTERED MENTAL STATUS. IV DC'D AND BELONGINGS RETURNED.
--- NOTE | 2019-05-24 15:34 | NUR ---
Spiritual care visit conducted. Patient is sitting up in bed and alert. Patient tells me she will be going back to [facility] in [place] very soon. She shares about her 55 years of marriage, their desire to move to [place], and about the spiritual journey she has been on (from [employer] to Hoah[employer]ism). Patient explains that she has good support from her and son. I listen empathically, explore sources of meaning and worth, and provide prayer. Patient responds well and voices appreciation for the visit.
--- NOTE | 2019-05-24 16:26 | NUR ---
DR MAJANO GAVE THIS RN A SCRIPT FOR ADDITIONAL ABX AND MEDICATIONS PT NEEDS FOR DISCHARGE. CALLED TO NOTIFY [facility]: RX FAXED TO [facility].
[2019-06-25] MEDS ORDERED: METO5 PO (14:21)
[2019-06-25] MEDS ORDERED: THERA-D2000 UNIT PO (14:23)
[2019-06-25] MEDS ORDERED: Humalog100 UNIT/3 SC (14:26)
[2019-06-26] MEDS ORDERED: Bumetanide2 MG PO (11:47)
[2019-06-26] MEDS ORDERED: LACT10SY PO (11:52)
[2019-06-26] MEDS ORDERED: Duoneb 2.5-0.5 M3 ML INH (11:52)
[2019-06-26] MEDS ORDERED: POTCHL20ER PO (11:54)
[2019-06-26] MEDS ORDERED: PROBIOTIC250 MG PO (11:55)
[2019-06-26] MEDS ORDERED: SPIR25 PO (11:55)
== END 2019-05-24 13:59 | disposition home or self-care (01) | DRG 193 ==
LOC: ER 09:16 → MEDS 11:32 → ENPENDDIS 05-24 11:12 → MEDS 05-24 13:59
PROVIDERS: Emergency Medicine; ADMIT Internal Medicine
DX: J18.9 Pneumonia, unspecified organism (principal); G92 Toxic encephalopathy; N39.0 Urinary tract infection, site not specified; I50.30 Unspecified diastolic (congestive) heart failure; B95.1 Streptococcus, group B, as the cause of diseases classified elsewhere; K72.90 Hepatic failure, unspecified without coma; K74.60 Unspecified cirrhosis of liver; D69.6 Thrombocytopenia, unspecified; E11.22 Type 2 diabetes mellitus with diabetic chronic kidney disease; N18.3 Chronic kidney disease, stage 3 (moderate); J44.9 Chronic obstructive pulmonary disease, unspecified; G25.81 Restless legs syndrome; E03.9 Hypothyroidism, unspecified; I48.91 Unspecified atrial fibrillation; F32.9 Major depressive disorder, single episode, unspecified; Z79.01 Long term (current) use of anticoagulants; Z79.4 Long term (current) use of insulin; Z79.899 Other long term (current) drug therapy
CPT/HCPCS: 36415; 51702; 71046; 80053; 81001; 82140; 82947; 84145; 85025; 87077; 87086; 87147; 87186; 93005; 93010; 94640; 94760; 96374-59; 99285-25; J0456; J0696; J1815; J7050

== ENCOUNTER 2019-06-12 12:19 | Inpatient (IN) | payer MEDICARE, OTHER ==
[~2019-06-12] VITALS: Ht 152.4 cm; Wt 108.9 kg
[~2019-06-12 12:19] MED LIST changes: +AZIT500 PO; +BASAGLAR K100 UNIT/2; +Fleet Enema132 ML PR; +MILK OF MA400 MG/5 M PO; +PROBIOTIC FORM1 EAC1 PO
[2019-06-12 13:01] LABS: BASOPHILS ABSOLUTE AUTO 0.02 K/mm3 (0.00-0.23); BASOPHILS PERCENT AUTO 0 % (0-2); EOSINOPHILS ABSOLUTE AUTO 0.13 K/mm3 (0.00-0.68); EOSINOPHILS PERCENT AUTO 2 % (0-6); Hematocrit 35.2 % (33.0-51.0); Hemoglobin 11.2 g/dL (11.5-16.0); IMMATURE GRAN ABSOLUTE AUTO 0.02 K/mm3 (0.00-0.10); IMMATURE GRAN PERCENT AUTO 0 % (0-1); LYMPHOCYTES ABSOLUTE AUTO 1.18 K/mm3 (0.84-5.20); LYMPHOCYTES PERCENT AUTO 21 % (21-46); MONOCYTES ABSOLUTE AUTO 0.41 K/mm3 (0.16-1.47); MONOCYTES PERCENT AUTO 7 % (4-13); Mean Corpuscular HGB 29.2 pg (26.0-34.0); Mean Corpuscular HGB Conc 31.8 g/dL (31.5-36.5); Mean Corpuscular Volume 92 fL (80-100); Mean Platelet Volume 12.1 fL (9.1-12.4); NEUTROPHILS ABSOLUTE AUTO 3.88 K/mm3 (1.96-9.15); NEUTROPHILS PERCENT AUTO 69 % (41-73); Platelet Count 95 K/mm3 (150-400); RDW Coefficient Variation 14.6 % (11.7-14.2); RDW Standard Deviation 48.7 fL (35.1-46.3); Red Blood Cell Count 3.84 M/mm3 (3.80-5.20); White Blood Cell Count 5.64 K/mm3 (4.00-11.30)
[2019-06-12 13:15] LABS: Magnesium, Blood 2.4 mg/dL (1.6-2.4); Troponin I <0.015 ng/mL (0.000-0.040)
[2019-06-12 13:16] LABS: Alanine Aminotransfer (ALT/SGP 36 U/L (12-78); Albumin, Blood 3.5 g/dL (3.4-5.0); Alk Phos 95 U/L (50-136); Anion Gap 7 mmol/L (6-16); Aspartate Aminotrans (AST/SGOT 30 U/L (12-37); Blood Urea Nitrogen 47 mg/dL (8-24); Bun/Creatinine Ratio 36.7 (12.0-20.0); CO2, Blood 28 mmol/L (21-32); Calcium, Blood 9.2 mg/dL (8.5-10.1); Chloride, Blood 104 mmol/L (98-108); Creatinine, Blood 1.28 mg/dL (0.40-1.00); Globulin, Blood 3.4 g/dL (2.2-4.0); Glomerular Filtration Rate 44 (60-); Glucose, Blood 201 mg/dL (70-99); Potassium, Blood 4.5 mmol/L (3.5-5.5); Sodium, Blood 139 mmol/L (136-145); Total Protein, Blood 6.9 g/dL (6.4-8.2)
[2019-06-12] MEDS ORDERED: ACET500 PO (14:08)
[2019-06-12] MEDS ORDERED: Bumetanide2 MG PO (14:19)
[2019-06-12] MEDS ORDERED: [UNRECOGNIZED DRUG - OTHER] NEB (14:30)
[2019-06-12] MEDS ORDERED: NARCAN4 MG (14:34)
[2019-06-12] MEDS ORDERED: BISM87SU PO (14:36)
[2019-06-12] MEDS ORDERED: Milk Of Ma400 MG/5 M PO (14:36)
--- NOTE | 2019-06-12 18:15 | NUR ---
ASSUMED CARE PT ADMITTED TO UNIT FROM ANALOG DEVICE DESIGNER. PT ALERT AND ORIENTED. VS STABLE. HR PACED AT THIS TIME. BP STABLE. LEFT CHEST WALL INCISION COVERED WITH WITH GUAZE AND TEGADERM DRESSING. PT ORIENTED TO UNIT. WILL CONTINUE TO MONITOR AND REPORT TO ONCOMING RN. CALL LIGHT IN REACH. SLING TO LEFT ARM.
--- NOTE | 2019-06-12 22:16 | NUR ---
ASSUMED CARE OF PATIENT AT APPROXIMATELY 1900 FROM RADHA Mandel RN. PATIENT EATING DINNER DURING BEDSIDE REPORT. PATIENT DENIES PAIN, NUMBNESS, TINGLING, DIZZINESS OR NAUSEA. PATIENT S/P PACEMAKER; SLING TO LEFT ARM; EDUCATED ON RESTRICTIONS. PATIENT DROWSY AT TIMES; WAKES TO VERBAL STIMULUS. PATIENT REPORTS SHE LIVES AT [facility]. PATIENT INCONTINENT OF URINE AND STOOL; ATTENDS PLACED. PIV S/L. 100% PACED ON TELE; OXYGEN SATURATION ABOVE 90% ON 2LPM VIA NC; PATIENT DOESNT WEAR O2 AT BASELINE. KATIE RN REPORTS YOUTH CARE SPECIALIST DR. CASAREZ CALLED TO REPORT DRESSING TO BE CHANGED IN AM. PATIENT CURRENTLY RESTING BED; CALL LIGHT IN REACH; BED IN LOWEST POSISTION; BED ALARM ON; WILL CONTINUE TO MONITOR AND ASSESS UNTIL END OF SHIFT.
[2019-06-13 04:09] LABS: BASOPHILS ABSOLUTE AUTO 0.01 K/mm3 (0.00-0.23); BASOPHILS PERCENT AUTO 0 % (0-2); EOSINOPHILS ABSOLUTE AUTO 0.12 K/mm3 (0.00-0.68); EOSINOPHILS PERCENT AUTO 3 % (0-6); Hemoglobin 10.7 g/dL (11.5-16.0); IMMATURE GRAN ABSOLUTE AUTO 0.02 K/mm3 (0.00-0.10); IMMATURE GRAN PERCENT AUTO 1 % (0-1); LYMPHOCYTES ABSOLUTE AUTO 1.15 K/mm3 (0.84-5.20); LYMPHOCYTES PERCENT AUTO 27 % (21-46); MONOCYTES ABSOLUTE AUTO 0.37 K/mm3 (0.16-1.47); MONOCYTES PERCENT AUTO 9 % (4-13); Mean Corpuscular HGB 29.2 pg (26.0-34.0); Mean Corpuscular HGB Conc 31.5 g/dL (31.5-36.5); Mean Corpuscular Volume 93 fL (80-100); Mean Platelet Volume 11.6 fL (9.1-12.4); NEUTROPHILS ABSOLUTE AUTO 2.52 K/mm3 (1.96-9.15); NEUTROPHILS PERCENT AUTO 60 % (41-73); Platelet Count 82 K/mm3 (150-400); RDW Coefficient Variation 14.6 % (11.7-14.2); RDW Standard Deviation 50.2 fL (35.1-46.3); Red Blood Cell Count 3.67 M/mm3 (3.80-5.20); White Blood Cell Count 4.19 K/mm3 (4.00-11.30)
[2019-06-13 04:24] LABS: Bun/Creatinine Ratio 36.6 (12.0-20.0); Creatinine, Blood 1.23 mg/dL (0.40-1.00); Potassium, Blood 3.6 mmol/L (3.5-5.5)
--- NOTE | 2019-06-13 06:17 | NUR ---
PATIENT SLEPT ABOUT TEN HOURS LAST NIGHT. INCONTINENT OF URINE AND FORMED STOOL. NO CHANGES TO PACER SITE. VSS. WILL CONTINUE TO MONITOR AND ASSESS UNTIL END SHIFT.
--- NOTE | 2019-06-13 10:16 | NUR ---
pt laying in bed watching tv, a/ox3, pleasant and cooperative with care, denies pain at this time, states she's doing ok, states she got some sleep last night, lungs are clear t/o, is on r/a, resp even and unlabored, no cough noted, hrr, tele in place running 100% paced rhythm, see strip, no edema noted, ppp+2, cap refill <3sec, vs stable, afebrile, iv site is clear and patent, btx 4 abd flat soft nontender, voids without diff, skin c/w/d, maew, khoa, call light in reach.
--- NOTE | 2019-06-13 11:19 | NUR ---
Spoke with Dr. Jose and she said that the pt is okay to discharge today.
--- NOTE | 2019-06-13 15:00 | NUR ---
pt has been discharged to home, she is transported to home via [facility], they are here with wheelchair van. went over her discharge instructions she verbalized understanding, iv was removed intact, left via wheelchair with transport in attendence, also gave extra dressing supplies to change dressing as wants this done. she has her belongings, no new meds to call in.
[2019-06-25] MEDS ORDERED: METO5 PO (14:21)
[2019-06-25] MEDS ORDERED: THERA-D2000 UNIT PO (14:23)
[2019-06-25] MEDS ORDERED: Humalog100 UNIT/3 SC (14:26)
[2019-06-26] MEDS ORDERED: Bumetanide2 MG PO (11:47)
[2019-06-26] MEDS ORDERED: LACT10SY PO (11:52)
[2019-06-26] MEDS ORDERED: Duoneb 2.5-0.5 M3 ML INH (11:52)
[2019-06-26] MEDS ORDERED: POTCHL20ER PO (11:54)
[2019-06-26] MEDS ORDERED: PROBIOTIC250 MG PO (11:55)
[2019-06-26] MEDS ORDERED: SPIR25 PO (11:55)
== END 2019-06-13 15:17 | disposition home or self-care (01) | DRG 243 ==
LOC: ER 12:19 → PCU 15:08
PROVIDERS: Emergency Medicine; ADMIT Internal Medicine
PROC: 0JH606Z Insertion of Pacemaker, Dual Chamber into Chest Subcutaneous Tissue and Fascia, Open Approach (ICD-10-PCS; principal; 2019-06-12)
PROC: 02HK3JZ Insertion of Pacemaker Lead into Right Ventricle, Percutaneous Approach (ICD-10-PCS; 2019-06-12)
PROC: 02H63JZ Insertion of Pacemaker Lead into Right Atrium, Percutaneous Approach (ICD-10-PCS; 2019-06-12)
PROC: 3E0132A Introduction of Anti-Infective Envelope into Subcutaneous Tissue, Percutaneous Approach (ICD-10-PCS; 2019-06-12)
DX: I44.2 Atrioventricular block, complete (principal); I13.0 Hypertensive heart and chronic kidney disease with heart failure and stage 1 through stage 4 chronic kidney disease, or unspecified chronic kidney disease; I50.32 Chronic diastolic (congestive) heart failure; I48.20 Chronic atrial fibrillation, unspecified; Z79.01 Long term (current) use of anticoagulants; E11.22 Type 2 diabetes mellitus with diabetic chronic kidney disease; N18.3 Chronic kidney disease, stage 3 (moderate); Z79.4 Long term (current) use of insulin; E03.9 Hypothyroidism, unspecified; G25.81 Restless legs syndrome; K74.60 Unspecified cirrhosis of liver; D69.6 Thrombocytopenia, unspecified
CPT/HCPCS: 33208; 36415; 71045; 71046; 76937; 80048; 80053; 82947; 83735; 84443; 84484; 85025; 93005; 93010; 94640; 94760; 99152; 99153; 99285-25; C1781; C1785; C1898; J0690; J1644; J2250; J3010; J7030; J7040

== ENCOUNTER 2019-08-15 15:17 | Emergency (ER) | payer MEDICARE, OTHER ==
[~2019-08-15] VITALS: Ht 152.4 cm; Wt 131.5 kg
[~2019-08-15 15:17] MED LIST changes: +ACET500 PO; +Duoneb 2.5-0.5 M3 ML INH; +NARCAN4 MG; +PROBIOTIC250 MG PO; +THERA-D2000 UNIT PO; +[UNRECOGNIZED DRUG - OTHER] NEB
[2019-08-15 15:54] LABS: BASOPHILS ABSOLUTE AUTO 0.01 K/mm3 (0.00-0.23); BASOPHILS PERCENT AUTO 0 % (0-2); EOSINOPHILS ABSOLUTE AUTO 0.06 K/mm3 (0.00-0.68); EOSINOPHILS PERCENT AUTO 1 % (0-6); Hematocrit 31.7 % (33.0-51.0); Hemoglobin 10.2 g/dL (11.5-16.0); IMMATURE GRAN ABSOLUTE AUTO 0.01 K/mm3 (0.00-0.10); IMMATURE GRAN PERCENT AUTO 0 % (0-1); LYMPHOCYTES ABSOLUTE AUTO 1.02 K/mm3 (0.84-5.20); LYMPHOCYTES PERCENT AUTO 25 % (21-46); MONOCYTES ABSOLUTE AUTO 0.31 K/mm3 (0.16-1.47); MONOCYTES PERCENT AUTO 8 % (4-13); Mean Corpuscular HGB 28.8 pg (26.0-34.0); Mean Corpuscular HGB Conc 32.2 g/dL (31.5-36.5); Mean Corpuscular Volume 90 fL (80-100); Mean Platelet Volume 10.9 fL (9.1-12.4); NEUTROPHILS ABSOLUTE AUTO 2.75 K/mm3 (1.96-9.15); NEUTROPHILS PERCENT AUTO 66 % (41-73); Platelet Count 73 K/mm3 (150-400); RDW Coefficient Variation 14.3 % (11.7-14.2); RDW Standard Deviation 46.7 fL (35.1-46.3); Red Blood Cell Count 3.54 M/mm3 (3.80-5.20); White Blood Cell Count 4.16 K/mm3 (4.00-11.30)
[2019-08-15 16:22] LABS: Alanine Aminotransfer (ALT/SGP 35 U/L (12-78); Albumin, Blood 3.6 g/dL (3.4-5.0); Albumin/Globulin Ratio 1.1 (0.8-1.8); Alk Phos 98 U/L (50-136); Anion Gap 5 mmol/L (6-16); Aspartate Aminotrans (AST/SGOT 35 U/L (12-37); Bilirubin, Total 0.8 mg/dL (0.1-1.0); Blood Urea Nitrogen 23 mg/dL (8-24); Bun/Creatinine Ratio 29.7 (12.0-20.0); CO2, Blood 23 mmol/L (21-32); Calcium, Blood 8.8 mg/dL (8.5-10.1); Chloride, Blood 108 mmol/L (98-108); Creatinine, Blood 0.77 mg/dL (0.40-1.00); Globulin, Blood 3.3 g/dL (2.2-4.0); Glomerular Filtration Rate >60 (60-); Glucose, Blood 232 mg/dL (70-99); Potassium, Blood 4.3 mmol/L (3.5-5.5); Sodium, Blood 136 mmol/L (136-145); Total Protein, Blood 6.9 g/dL (6.4-8.2); Troponin I <0.015 ng/mL (0.000-0.040)
== END 2019-08-15 18:10 | disposition home or self-care (01) ==
LOC: ER 15:17
PROVIDERS: Nurse Practitioner
DX: R06.02 Shortness of breath (principal); Z88.8 Allergy status to other drugs, medicaments and biological substances; Z79.899 Other long term (current) drug therapy; Z79.4 Long term (current) use of insulin; E11.22 Type 2 diabetes mellitus with diabetic chronic kidney disease; N18.3 Chronic kidney disease, stage 3 (moderate); I50.32 Chronic diastolic (congestive) heart failure; J44.9 Chronic obstructive pulmonary disease, unspecified; F32.9 Major depressive disorder, single episode, unspecified; E03.9 Hypothyroidism, unspecified; I48.20 Chronic atrial fibrillation, unspecified
CPT/HCPCS: 71046; 80053; 83880; 84484; 85025; 93005; 93010; 99285-25

== ENCOUNTER 2019-08-16 08:26 | Emergency (ER) | payer MEDICARE, OTHER ==
[~2019-08-16] VITALS: Ht 152.4 cm; Wt 90.7 kg
[2019-08-16 09:36] LABS: BASOPHILS ABSOLUTE AUTO 0.02 K/mm3 (0.00-0.23); BASOPHILS PERCENT AUTO 1 % (0-2); EOSINOPHILS ABSOLUTE AUTO 0.05 K/mm3 (0.00-0.68); EOSINOPHILS PERCENT AUTO 1 % (0-6); Hematocrit 31.8 % (33.0-51.0); Hemoglobin 10.1 g/dL (11.5-16.0); IMMATURE GRAN ABSOLUTE AUTO 0.01 K/mm3 (0.00-0.10); IMMATURE GRAN PERCENT AUTO 0 % (0-1); LYMPHOCYTES ABSOLUTE AUTO 0.77 K/mm3 (0.84-5.20); LYMPHOCYTES PERCENT AUTO 21 % (21-46); MONOCYTES ABSOLUTE AUTO 0.23 K/mm3 (0.16-1.47); MONOCYTES PERCENT AUTO 6 % (4-13); Mean Corpuscular HGB 28.2 pg (26.0-34.0); Mean Corpuscular HGB Conc 31.8 g/dL (31.5-36.5); Mean Corpuscular Volume 89 fL (80-100); Mean Platelet Volume 10.9 fL (9.1-12.4); NEUTROPHILS ABSOLUTE AUTO 2.62 K/mm3 (1.96-9.15); NEUTROPHILS PERCENT AUTO 71 % (41-73); Platelet Count 76 K/mm3 (150-400); RDW Coefficient Variation 14.2 % (11.7-14.2); Red Blood Cell Count 3.58 M/mm3 (3.80-5.20)
[2019-08-16 09:53] LABS: Alanine Aminotransfer (ALT/SGP 36 U/L (12-78); Albumin, Blood 3.8 g/dL (3.4-5.0); Albumin/Globulin Ratio 1.2 (0.8-1.8); Alk Phos 97 U/L (50-136); Anion Gap 5 mmol/L (6-16); Aspartate Aminotrans (AST/SGOT 33 U/L (12-37); Bilirubin, Total 1.1 mg/dL (0.1-1.0); Blood Urea Nitrogen 19 mg/dL (8-24); Bun/Creatinine Ratio 22.5 (12.0-20.0); CO2, Blood 25 mmol/L (21-32); Calcium, Blood 8.7 mg/dL (8.5-10.1); Chloride, Blood 108 mmol/L (98-108); Creatinine, Blood 0.85 mg/dL (0.40-1.00); Globulin, Blood 3.3 g/dL (2.2-4.0); Glomerular Filtration Rate >60 (60-); Glucose, Blood 245 mg/dL (70-99); Potassium, Blood 4.6 mmol/L (3.5-5.5); Sodium, Blood 138 mmol/L (136-145); Total Protein, Blood 7.1 g/dL (6.4-8.2)
--- NOTE | 2019-08-16 10:31 | NUR ---
Met with patient to review her care needs. Pt states she has been wheel chair bound and total care for some time. She lives at [facility] with her and he is also in a wheel chair. They have contacted their shoe parts caser to see about moving to a facility with more care. Pt states she has been doing some what better since they gave her a pacemaker. She sees doctor kt monthly to imaging center manager her kidneys and anemia. She was being managed by [facility] and felt she was better under their care. Pt denies harmeet symtom of pain except difficulty swallowing due to ill fitting dentures and she has been having more headaches recently behind her right eye. Advised her to tell the nurse at [facility] to get her a dental appointment. Advised her to tell doctor kt about her headaches. She denies ringing in her ears or change in vision.
== END 2019-08-16 11:02 | disposition home or self-care (01) ==
LOC: ER 08:26
PROVIDERS: Emergency Medicine
DX: R53.1 Weakness (principal); J44.9 Chronic obstructive pulmonary disease, unspecified; N18.3 Chronic kidney disease, stage 3 (moderate); I50.32 Chronic diastolic (congestive) heart failure; F32.9 Major depressive disorder, single episode, unspecified; E03.9 Hypothyroidism, unspecified; Z79.899 Other long term (current) drug therapy
CPT/HCPCS: 36415; 80053; 85025; 99284

== ENCOUNTER 2019-09-01 03:34 | Inpatient (IN) | payer MEDICARE, OTHER ==
[~2019-09-01] VITALS: Ht 152.4 cm; Wt 111.1 kg
[~2019-09-01 03:34] MED LIST changes: +BASAGLAR K100 UNIT/2 SC
[2019-09-01 04:39] LABS: BASOPHILS ABSOLUTE AUTO 0.03 K/mm3 (0.00-0.23); BASOPHILS PERCENT AUTO 0 % (0-2); EOSINOPHILS ABSOLUTE AUTO 0.15 K/mm3 (0.00-0.68); EOSINOPHILS PERCENT AUTO 2 % (0-6); Hematocrit 37.4 % (33.0-51.0); Hemoglobin 11.6 g/dL (11.5-16.0); IMMATURE GRAN ABSOLUTE AUTO 0.02 K/mm3 (0.00-0.10); IMMATURE GRAN PERCENT AUTO 0 % (0-1); LYMPHOCYTES ABSOLUTE AUTO 1.65 K/mm3 (0.84-5.20); LYMPHOCYTES PERCENT AUTO 19 % (21-46); MONOCYTES ABSOLUTE AUTO 0.77 K/mm3 (0.16-1.47); MONOCYTES PERCENT AUTO 9 % (4-13); Mean Corpuscular HGB 27.7 pg (26.0-34.0); Mean Corpuscular Volume 89 fL (80-100); Mean Platelet Volume 11.4 fL (9.1-12.4); NEUTROPHILS ABSOLUTE AUTO 6.23 K/mm3 (1.96-9.15); NEUTROPHILS PERCENT AUTO 71 % (41-73); Platelet Count 95 K/mm3 (150-400); RDW Coefficient Variation 14.4 % (11.7-14.2); RDW Standard Deviation 46.4 fL (35.1-46.3); Red Blood Cell Count 4.19 M/mm3 (3.80-5.20); White Blood Cell Count 8.85 K/mm3 (4.00-11.30)
[2019-09-01 05:00] LABS: Alanine Aminotransfer (ALT/SGP 29 U/L (12-78); Albumin/Globulin Ratio 1.1 (0.8-1.8); Alk Phos 116 U/L (50-136); Anion Gap 7 mmol/L (6-16); Aspartate Aminotrans (AST/SGOT 32 U/L (12-37); Bilirubin, Total 0.8 mg/dL (0.1-1.0); Blood Urea Nitrogen 44 mg/dL (8-24); CO2, Blood 30 mmol/L (21-32); Calcium, Blood 8.9 mg/dL (8.5-10.1); Chloride, Blood 101 mmol/L (98-108); Creatinine, Blood 1.63 mg/dL (0.40-1.00); Globulin, Blood 3.6 g/dL (2.2-4.0); Glomerular Filtration Rate 33 (60-); Glucose, Blood 197 mg/dL (70-99); Potassium, Blood 4.7 mmol/L (3.5-5.5); Sodium, Blood 138 mmol/L (136-145); Total Protein, Blood 7.6 g/dL (6.4-8.2); Troponin I <0.015 ng/mL (0.000-0.040)
[2019-09-01 06:56] LABS: PCO2 Arterial 48.4 mmHg (35-45); PO2 Arterial 96.2 mmHg (80-100); pH Blood Arterial 7.37 (7.35-7.45)
[2019-09-01 13:27] LABS: Adenovirus Not Detected (NOT DETECT); Bordetella pertussis Not Detected (NOT DETECT); Chlamydophila pneumoniae Not Detected (NOT DETECT); Coronavirus 229E Not Detected (NOT DETECT); Coronavirus HKU1 Not Detected (NOT DETECT); Coronavirus NL63 Not Detected (NOT DETECT); Coronavirus OC43 Not Detected (NOT DETECT); Human Metapneumovirus Not Detected (NOT DETECT); Human Rhinovirus/Enterovirus Not Detected (NOT DETECT); Influenza A/2009-H1 Not Detected (NOT DETECT); Influenza A/H1 Not Detected (NOT DETECT); Influenza A/H3 Not Detected (NOT DETECT); Influenza B Not Detected (NOT DETECT); Mycoplasma pneumoniae Not Detected (NOT DETECT); Parainfluenza Virus 1 Not Detected (NOT DETECT); Parainfluenza Virus 2 Not Detected (NOT DETECT); Parainfluenza Virus 3 Not Detected (NOT DETECT); Parainfluenza Virus 4 Not Detected (NOT DETECT); Respiratory Syncytial Virus Not Detected (NOT DETECT)
--- NOTE | 2019-09-01 19:35 | NUR ---
SHIFT SUMMARY PT IS ON 2 L O2 VIA NC, RESP UNLABORED. SHE REMAINS CONFUSED, ORIENTED TO SELF, LETHARGIC, BUT SHE WILL WAKE TO VERBAL STIMULATION. PT WAS ABLE TO DRINK HER DOSE OF LACTULOSE THIS AFTERNOON. GLUCOSE LEVELS HAVE BEEN HIGH, SLIDING SCALE HAS BEEN CHANGED TO TO MEDIUM PER AFTER NOTIFICATION. Q2 TURNS & ATTENDS CHANGES PROVIDED, RESP PANEL SENT TO LAB PER ORDERS, BED ALARM IS ON FOR SAFETY. CALL LIGHT IN REACH, REPORT GIVEN TO MARTHA RN.
[2019-09-02 03:36] LABS: BASOPHILS PERCENT AUTO 0 % (0-2); EOSINOPHILS PERCENT AUTO 0 % (0-6); Hematocrit 32.8 % (33.0-51.0); Hemoglobin 10.2 g/dL (11.5-16.0); IMMATURE GRAN ABSOLUTE AUTO 0.02 K/mm3 (0.00-0.10); IMMATURE GRAN PERCENT AUTO 1 % (0-1); LYMPHOCYTES ABSOLUTE AUTO 0.53 K/mm3 (0.84-5.20); LYMPHOCYTES PERCENT AUTO 14 % (21-46); MONOCYTES ABSOLUTE AUTO 0.08 K/mm3 (0.16-1.47); MONOCYTES PERCENT AUTO 2 % (4-13); Mean Corpuscular HGB 27.7 pg (26.0-34.0); Mean Corpuscular HGB Conc 31.1 g/dL (31.5-36.5); Mean Corpuscular Volume 89 fL (80-100); Mean Platelet Volume 11.7 fL (9.1-12.4); NEUTROPHILS ABSOLUTE AUTO 3.27 K/mm3 (1.96-9.15); NEUTROPHILS PERCENT AUTO 84 % (41-73); Platelet Count 66 K/mm3 (150-400); RDW Coefficient Variation 14.2 % (11.7-14.2); RDW Standard Deviation 45.6 fL (35.1-46.3); Red Blood Cell Count 3.68 M/mm3 (3.80-5.20)
[2019-09-02 03:54] LABS: Albumin, Blood 3.7 g/dL (3.4-5.0); Bilirubin, Total 0.4 mg/dL (0.1-1.0); Bun/Creatinine Ratio 48.5 (12.0-20.0); Calcium, Blood 8.5 mg/dL (8.5-10.1); Creatinine, Blood 1.32 mg/dL (0.40-1.00); Globulin, Blood 3.6 g/dL (2.2-4.0); Potassium, Blood 4.6 mmol/L (3.5-5.5); Total Protein, Blood 7.3 g/dL (6.4-8.2)
--- NOTE | 2019-09-02 05:13 | NUR ---
SHIFT SUMMARY PT SLEEPING IN ROOM COMFORTABLY AT THIS TIME. NO ACUTE CHANGES IN STATUS T/O NIGHT. PT SLEPT SOUNDLY. WOKE TO VERBAL STIMULI, PT DID FALL ASLEEP QUICKLY AFTER WAKING, NEEDED TO BE REAWOKEN MULTIPLE TIMES WHILE ATTEMPTING TO GIVE MEDS. PT WAS ABLE TO SWALLOW MAJORITY OF SCHEDULED LACTULOSE, HAD TO BE REMINDED TO SWALLOW MEDS IN MOUTH. RESP EVEN UNLABORED ON 2L NC W/ SATS > 92%. PT DENIED ANY CP OR SOB. PT WAS TURNED Q2 HR. ATTENDS IN PLACE C/D/I. NO OTHER CHANGES. CALL LIGHT IN REACH. BED ALARM ON FOR SAFETY.
[2019-09-02 11:37] LABS: Source, Urine Clean Catch
[2019-09-02 11:40] LABS: Bilirubin, Urine Neg (Neg); Blood, Urine 2+ (Neg); Glucose Qualitative, Urine 4+ (Neg); Ketones, Urine Neg (Neg); Leukocyte Esterase, Urine Neg (Neg); Nitrite, Urine Neg (Neg); Protein, Urine 1+ (Neg); Specific Gravity, Urine 1.015 (1.003-1.022); Urobilinogen, Urine NORM (Normal)
[2019-09-02 11:53] LABS: Appearance, Urine Clear (Clear); Color, Urine Pale Yellow (P-Yellow)
[2019-09-02 11:55] LABS: Bacteria Rare /hpf; Squamous Epithelial Cells Few /hpf (Few); White Blood Cells, Urine 0-2 /hpf (0-5)
[2019-09-02 11:56] LABS: U Amphetamine Screen Not Detected; U Barbituate Screen Not Detected; U Benzodiazapine Screen Not Detected; U Buprenorphine Screen Not Detected; U Cannabinoids Screen Not Detected; U Cocaine Screen Not Detected; U Methadone Screen Not Detected; U Methamphetamine Screen Not Detected; U Opiates Screen DETECTED; U Phencyclidine Screen Not Detected
[2019-09-02 11:57] LABS: U Oxycodone Screen Not Detected; U Propoxyphene Screen Not Detected
--- NOTE | 2019-09-02 17:38 | NUR ---
SHIFT SUMMARY PT MORE ALERT THIS EVENING ANSWERING QUESTIONS, BUT STILL CONFUSED AND DISORIENTED. VS STABLE. BP ELEVATED AND DISCUSSED WITH CHRISSIE. NEW MEDICATIONS HAVE BEEN ORDERED. CBG ELEVATED AND DISCUSSED WITH DR. DICKENS AND SHE INCREASED LANTUS AND CHANGED TO HIGH SLIDING SCALE FOR COVERAGE. PT REPOSITIONED Q2H. PT INCONTINENT OF BOWEL AND BLADDER. PT HAVING SOFT STOOL FREQUENTLY DUE TO LACTULOSE. PT TOLERATING PO INTAKE IF AWAKE. WILL CONITNUE TO MONITOR AND REPORT TO ONCOMING RN. CALL LIGHT IN REACH. BED ALARM ON.
[2019-09-03 04:33] LABS: BASOPHILS PERCENT AUTO 0 % (0-2); EOSINOPHILS PERCENT AUTO 0 % (0-6); Hematocrit 35.4 % (33.0-51.0); Hemoglobin 10.9 g/dL (11.5-16.0); IMMATURE GRAN ABSOLUTE AUTO 0.02 K/mm3 (0.00-0.10); IMMATURE GRAN PERCENT AUTO 0 % (0-1); LYMPHOCYTES ABSOLUTE AUTO 0.62 K/mm3 (0.84-5.20); LYMPHOCYTES PERCENT AUTO 13 % (21-46); MONOCYTES ABSOLUTE AUTO 0.29 K/mm3 (0.16-1.47); MONOCYTES PERCENT AUTO 6 % (4-13); Mean Corpuscular HGB 27.6 pg (26.0-34.0); Mean Corpuscular HGB Conc 30.8 g/dL (31.5-36.5); Mean Corpuscular Volume 90 fL (80-100); Mean Platelet Volume 12.1 fL (9.1-12.4); NEUTROPHILS ABSOLUTE AUTO 3.74 K/mm3 (1.96-9.15); NEUTROPHILS PERCENT AUTO 80 % (41-73); Platelet Count 82 K/mm3 (150-400); RDW Coefficient Variation 14.1 % (11.7-14.2); RDW Standard Deviation 45.7 fL (35.1-46.3); Red Blood Cell Count 3.95 M/mm3 (3.80-5.20); White Blood Cell Count 4.67 K/mm3 (4.00-11.30)
--- NOTE | 2019-09-03 04:46 | NUR ---
SHIFT SUMMARY NO ACUTE CHANGES NOTED THROUGH THE NIGHT. PT REMAINS ON RA, VSS, DENIES CP/SOB. SHE IS MORE ALERT, EXPRESSES HER NEEDS, OCCASIONALLY CALLS OUT TO STAFF & HAS USED HER CALL LIGHT ONCE. SHE HAS BEEN ASKING FOR DRINKS AND AND REQUESTED FOOD LAST NIGHT SHE SLEPT THROUGH DINNER. SHE WAS GIVEN THICKENED SOUP THE PT WAS UNABLE TO CHEW THE FOOD CHOICES SENT ON THE TRAY. SHE ATE 100%. SHE IS STILL TOO TIRED/WEAK TO FEED HERSELF SO SHE HAS BEEN ASSISTED. THIN LIQUIDS GIVEN WITH A SPOON. PT'S BASELINE IS UNKNOWN AT THIS TIME. PT CONTINUES TO HAVE SOFT BROWN STOOLS, ATTENDS CHANGED PRN. SHE WILL BE TRANSFERRED TO ROOM 231 THIS AM. WCTM UNTIL REPORT IS GIVEN & TRANSFER IS COMPLETE. RESTING QUIETLY AT THIS TIME, RESP UNLABORED.
[2019-09-03 04:51] LABS: Bun/Creatinine Ratio 55.5 (12.0-20.0); Calcium, Blood 9.1 mg/dL (8.5-10.1); Creatinine, Blood 1.1 mg/dL (0.40-1.00); Potassium, Blood 3.6 mmol/L (3.5-5.5)
--- NOTE | 2019-09-03 05:44 | NUR ---
PT TRANSFERED TO UNIT FROM PCU 1, REPORT RECEIVED FROM PREVIOUS RN. PT SLID TO BED USING SLIDER SHEET. PT [id number] WHEN ASKED. ANSWERING QUESTIONS APPROPRATLY. SITTING UP IN BED EATIGN ICE CHIPS. LUNG SOUNDS CLEAR. PT DENIES PAIN. CALL LIGHT IN REACH, BED ALARM ON. WILL GIVE REPORT TO ONCOMING RN
--- NOTE | 2019-09-03 11:23 | NUR ---
NOTIFIED LAB OF >500 CBG VALUE. LAB VERBALIZED SOMEONE WOULD COME DOWN AND DRAW PATIENT.
[2019-09-03 12:03] LABS: Glucose, Blood 528 mg/dL (70-99)
--- NOTE | 2019-09-03 12:13 | NUR ---
NOTIFIED DR. CONN OF BLOOD SUGAR. DR. CONN TO PLACE NEW ORDERS.
[2019-09-03 14:30] LABS: Glucose, Blood 543 mg/dL (70-99)
--- NOTE | 2019-09-03 14:46 | NUR ---
NOTIFIED DR. CONN OF VENOUS GLUCOSE OF 543. NO NEW ORDERS AT THIS TIME. RECHECKING CBG BEFORE DINNER AND WILL REPORT TO DR. CONN IF CONT TO BE HIGH.
--- NOTE | 2019-09-03 17:43 | NUR ---
SHIFT SUMMARY NO ACUTE CHANGES THIS SHIFT. PT WITH MULTIPLE LOOSE STOOLS. INCONTINENT OF BOWEL + BLADDER. CHANGING ATTENDS PRN. X1 ULTRAM FOR GENERALIZED PAIN. DENIES SOB. SATS STABLE ON RA. BLOOD SUGARS UNSTABLE TODAY, BUT ARE NOW TRENDING DOWN. PT REMAINS ALERT, NO LETHARGY. USES CALL LIGHT APPROPRIATELY.
--- NOTE | 2019-09-04 04:38 | NUR ---
SHIFT SUMMARY PT IS A/O X4. PT IS TOLERATING PO INTAKE. PT IS INCONTINENET OF URINE AND STOOL; ATTENS IN PLACE. PT HAS BEEN CHANGED W/SHANTELLE CARE SEVERAL TIMES DURING THE SHIFT AND HAD SEVERAL BM'S DURING THE NIGHT. PT MOVES SELF IN BED AND HAS BEEN ASSISTED WITH REPOSITIONING PRN. PT HAS BEEN ON RA DURING THE NIGHT. DENIES C/P AND SOB. BED ALARM IN PLACE FOR SAFETY. ASSISTED WITH ADL'S PRN.
[2019-09-04] MEDS ORDERED: PRED20 PO (11:39)
[2019-09-04] MEDS ORDERED: NORVASC5 MG PO (11:40)
--- NOTE | 2019-09-04 13:23 | NUR ---
DISCHARGE SUMMARY PT TAKEN TO [facility] VIA AMBULANCE TRANSPORT, WITH ALL PERSONAL POSSESSIONS. REPORT CALLED TO SINAI BELTRÁN RN. IV DC'Kenna.
== END 2019-09-04 12:44 | disposition home or self-care (01) | DRG 441 ==
LOC: ER 03:34 → PCU 06:08 → SURS 09-03 05:38
PROVIDERS: Emergency Medicine; Internal Medicine; ADMIT Internal Medicine
DX: K72.00 Acute and subacute hepatic failure without coma (principal); J96.01 Acute respiratory failure with hypoxia; G92 Toxic encephalopathy; N17.9 Acute kidney failure, unspecified; I50.32 Chronic diastolic (congestive) heart failure; J44.1 Chronic obstructive pulmonary disease with (acute) exacerbation; I48.20 Chronic atrial fibrillation, unspecified; E11.65 Type 2 diabetes mellitus with hyperglycemia; N18.3 Chronic kidney disease, stage 3 (moderate); B18.2 Chronic viral hepatitis C; K74.60 Unspecified cirrhosis of liver; F32.9 Major depressive disorder, single episode, unspecified; E03.9 Hypothyroidism, unspecified; Z79.4 Long term (current) use of insulin; G25.81 Restless legs syndrome; D69.6 Thrombocytopenia, unspecified
CPT/HCPCS: 0099U; 36415; 36600; 51701; 71045; 80048; 80053; 81001; 82140; 82803; 82947; 83880; 84484; 85025; 93005; 93010; 94640; 94644; 94664; 94667; 94760; 96374; 96375; 98960; 99285-25; A9270; A9270-GY; C9113; J1650; J2310; J2930; J7030; J7512

== ENCOUNTER 2019-11-26 18:54 | Emergency (ER) | payer MEDICARE, OTHER ==
[~2019-11-26] VITALS: Ht 152.4 cm; Wt 124.3 kg
[~2019-11-26 18:54] MED LIST changes: +NORVASC5 MG PO; +PRED20 PO
[2019-11-26 19:35] LABS: Source, Urine Catheter
[2019-11-26 19:46] LABS: Appearance, Urine Hazy (Clear); Bilirubin, Urine Neg (Neg); Blood, Urine 2+ (Neg); Color, Urine Yellow (P-Yellow); Glucose Qualitative, Urine Neg (Neg); Ketones, Urine Neg (Neg); Leukocyte Esterase, Urine 3+ (Neg); Nitrite, Urine Neg (Neg); Protein, Urine 2+ (Neg); Specific Gravity, Urine 1.015 (1.003-1.022); Urobilinogen, Urine NORM (Normal)
[2019-11-26] MEDS ORDERED: Vitamin D2000 UNIT PO (19:46)
[2019-11-26 19:50] LABS: White Blood Cells, Urine TNTC /hpf (0-5)
[2019-11-26] MEDS ORDERED: MILK OF MA400 MG/51 (19:50)
[2019-11-26 19:51] LABS: Bacteria Many /hpf; Squamous Epithelial Cells Not Seen /hpf (Few)
[2019-11-26 20:01] LABS: BASOPHILS ABSOLUTE AUTO 0.02 K/mm3 (0.00-0.23); BASOPHILS PERCENT AUTO 1 % (0-2); EOSINOPHILS PERCENT AUTO 2 % (0-6); Hematocrit 33.2 % (33.0-51.0); Hemoglobin 10.1 g/dL (11.5-16.0); IMMATURE GRAN ABSOLUTE AUTO 0.01 K/mm3 (0.00-0.10); IMMATURE GRAN PERCENT AUTO 0 % (0-1); LYMPHOCYTES PERCENT AUTO 28 % (21-46); MONOCYTES ABSOLUTE AUTO 0.44 K/mm3 (0.16-1.47); MONOCYTES PERCENT AUTO 10 % (4-13); Mean Corpuscular HGB 27.4 pg (26.0-34.0); Mean Corpuscular HGB Conc 30.4 g/dL (31.5-36.5); Mean Corpuscular Volume 90 fL (80-100); Mean Platelet Volume 11.6 fL (9.1-12.4); NEUTROPHILS ABSOLUTE AUTO 2.45 K/mm3 (1.96-9.15); NEUTROPHILS PERCENT AUTO 58 % (41-73); Platelet Count 85 K/mm3 (150-400); RDW Coefficient Variation 15.4 % (11.7-14.2); RDW Standard Deviation 50.4 fL (35.1-46.3); Red Blood Cell Count 3.69 M/mm3 (3.80-5.20); White Blood Cell Count 4.22 K/mm3 (4.00-11.30)
[2019-11-26 20:12] LABS: Albumin, Blood 3.7 g/dL (3.4-5.0); Albumin/Globulin Ratio 1.2 (0.8-1.8); Bilirubin, Total 0.7 mg/dL (0.1-1.0); Bun/Creatinine Ratio 36.5 (12.0-20.0); Calcium, Blood 8.7 mg/dL (8.5-10.1); Creatinine, Blood 1.15 mg/dL (0.40-1.00); Globulin, Blood 3.2 g/dL (2.2-4.0); Potassium, Blood 3.9 mmol/L (3.5-5.5); Total Protein, Blood 6.9 g/dL (6.4-8.2)
[2019-11-26] MEDS ORDERED: CEPH500 PO (20:21)
[2019-11-26] MEDS ORDERED: Pyridium100 MG PO (20:21)
== END 2019-11-26 20:00 | disposition home or self-care (01) ==
LOC: ER 18:54
PROVIDERS: Emergency Medicine
DX: N30.90 Cystitis, unspecified without hematuria (principal); D69.6 Thrombocytopenia, unspecified; E11.22 Type 2 diabetes mellitus with diabetic chronic kidney disease; N18.3 Chronic kidney disease, stage 3 (moderate); D63.1 Anemia in chronic kidney disease; J44.9 Chronic obstructive pulmonary disease, unspecified; I50.32 Chronic diastolic (congestive) heart failure; I48.91 Unspecified atrial fibrillation; Z88.8 Allergy status to other drugs, medicaments and biological substances; Z79.899 Other long term (current) drug therapy; Z79.4 Long term (current) use of insulin; Z79.01 Long term (current) use of anticoagulants
CPT/HCPCS: 36415; 51702; 80053; 81001; 83690; 85025; 87077; 87086; 87186; 93005; 93010; 99284-25; J0696

== ENCOUNTER → 2020-02-07 | Outpatient (CLI) | payer MEDICARE, OTHER ==
[~2020-02-07] MED LIST changes: +MILK OF MA400 MG/51; +Pyridium100 MG PO
[2020-02-07 14:20] LABS: Albumin, Blood 3.7 g/dL (3.4-5.0); Anion Gap 7 mmol/L (6-16); Blood Urea Nitrogen 28 mg/dL (8-24); Bun/Creatinine Ratio 25.9 (12.0-20.0); CO2, Blood 30 mmol/L (21-32); Calcium, Blood 8.9 mg/dL (8.5-10.1); Chloride, Blood 101 mmol/L (98-108); Creatinine, Blood 1.08 mg/dL (0.40-1.00); Glomerular Filtration Rate 53 (60-); Glucose, Blood 279 mg/dL (70-99); Phosphorus, Blood 4.1 mg/dL (2.5-4.9); Potassium, Blood 4.3 mmol/L (3.5-5.5); Sodium, Blood 138 mmol/L (136-145)
== END | disposition home or self-care (01) ==
LOC: LAB SHORT 13:43 → LAB 13:43
PROVIDERS: Internal Medicine Nephrology
DX: N18.3 Chronic kidney disease, stage 3 (moderate) (principal); D63.1 Anemia in chronic kidney disease
CPT/HCPCS: 80069; 82140

== ENCOUNTER → 2020-03-31 | Outpatient (CLI) | payer MEDICARE, OTHER ==
[~2020-03-31] MED LIST changes: +ALBU90OI INH; +COMBIVENT RESPIM4 G1 INH; +DULCOLAX400 MG/5 M PO; -MILK OF MA400 MG/51; +RIFA550T2 PO
[2020-03-31 08:14] LABS: BASOPHILS ABSOLUTE AUTO 0.03 K/mm3 (0.00-0.23); BASOPHILS PERCENT AUTO 1 % (0-2); EOSINOPHILS ABSOLUTE AUTO 0.24 K/mm3 (0.00-0.68); EOSINOPHILS PERCENT AUTO 4 % (0-6); Hemoglobin 9.9 g/dL (11.5-16.0); IMMATURE GRAN ABSOLUTE AUTO 0.02 K/mm3 (0.00-0.10); IMMATURE GRAN PERCENT AUTO 0 % (0-1); LYMPHOCYTES ABSOLUTE AUTO 1.24 K/mm3 (0.84-5.20); LYMPHOCYTES PERCENT AUTO 21 % (21-46); MONOCYTES ABSOLUTE AUTO 0.51 K/mm3 (0.16-1.47); MONOCYTES PERCENT AUTO 9 % (4-13); Mean Corpuscular HGB 27.3 pg (26.0-34.0); Mean Corpuscular HGB Conc 30.9 g/dL (31.5-36.5); Mean Corpuscular Volume 88 fL (80-100); Mean Platelet Volume 11.9 fL (9.1-12.4); NEUTROPHILS ABSOLUTE AUTO 3.96 K/mm3 (1.96-9.15); NEUTROPHILS PERCENT AUTO 66 % (41-73); Platelet Count 101 K/mm3 (150-400); RDW Standard Deviation 51.7 fL (35.1-46.3); Red Blood Cell Count 3.63 M/mm3 (3.80-5.20)
[2020-03-31 08:25] LABS: Albumin, Blood 3.7 g/dL (3.4-5.0); Albumin/Globulin Ratio 1.1 (0.8-1.8); Bilirubin, Total 0.9 mg/dL (0.1-1.0); Bun/Creatinine Ratio 28.8 (12.0-20.0); Calcium, Blood 8.1 mg/dL (8.5-10.1); Creatinine, Blood 1.11 mg/dL (0.40-1.00); Globulin, Blood 3.3 g/dL (2.2-4.0); Potassium, Blood 4.1 mmol/L (3.5-5.5)
== END ==
LOC: LAB RH 07:57 → EDSTATUS 09:13
PROVIDERS: Family Medicine
DX: I50.33 Acute on chronic diastolic (congestive) heart failure (principal); G93.41 Metabolic encephalopathy
CPT/HCPCS: 80053; 82140; 85025

== ENCOUNTER → 2020-04-28 | Outpatient (CLI) | payer MEDICARE, OTHER ==
[~2020-04-28] MED LIST changes: +ASPI81CH PO; +BASAGLAR K100 UNIT/6 SC; +DULOXETINE HCL60 M1 PO; +HUMALOG100 UNIT/1 SC; +K-TAB ER20 ME2 PO; +NITR.4SL SL; +SYNTHROID25 MCG PO; +TOBRAMYCIN5 ML BOTHEYES; +ZOCOR20 MG PO
[2020-04-28 11:37] LABS: BASOPHILS ABSOLUTE AUTO 0.03 K/mm3 (0.00-0.23); BASOPHILS PERCENT AUTO 1 % (0-2); EOSINOPHILS PERCENT AUTO 4 % (0-6); Hematocrit 33.1 % (33.0-51.0); Hemoglobin 9.9 g/dL (11.5-16.0); IMMATURE GRAN ABSOLUTE AUTO 0.03 K/mm3 (0.00-0.10); IMMATURE GRAN PERCENT AUTO 1 % (0-1); LYMPHOCYTES ABSOLUTE AUTO 1.06 K/mm3 (0.84-5.20); LYMPHOCYTES PERCENT AUTO 20 % (21-46); MONOCYTES ABSOLUTE AUTO 0.47 K/mm3 (0.16-1.47); MONOCYTES PERCENT AUTO 9 % (4-13); Mean Corpuscular HGB 26.4 pg (26.0-34.0); Mean Corpuscular HGB Conc 29.9 g/dL (31.5-36.5); Mean Corpuscular Volume 88 fL (80-100); Mean Platelet Volume 11.8 fL (9.1-12.4); NEUTROPHILS ABSOLUTE AUTO 3.54 K/mm3 (1.96-9.15); NEUTROPHILS PERCENT AUTO 66 % (41-73); Platelet Count 104 K/mm3 (150-400); RDW Coefficient Variation 15.6 % (11.7-14.2); RDW Standard Deviation 48.8 fL (35.1-46.3); Red Blood Cell Count 3.75 M/mm3 (3.80-5.20); White Blood Cell Count 5.33 K/mm3 (4.00-11.30)
[2020-04-28 11:41] LABS: Albumin, Blood 3.6 g/dL (3.4-5.0); Albumin/Globulin Ratio 1.1 (0.8-1.8); Bilirubin, Total 0.8 mg/dL (0.1-1.0); Bun/Creatinine Ratio 27.2 (12.0-20.0); Calcium, Blood 8.9 mg/dL (8.5-10.1); Creatinine, Blood 1.14 mg/dL (0.40-1.00); Globulin, Blood 3.2 g/dL (2.2-4.0); Potassium, Blood 3.9 mmol/L (3.5-5.5); Total Protein, Blood 6.8 g/dL (6.4-8.2)
== END | disposition home or self-care (01) ==
LOC: LAB RH 11:16 → EDSTATUS 12:35
PROVIDERS: Family Medicine
DX: I50.33 Acute on chronic diastolic (congestive) heart failure (principal); G93.41 Metabolic encephalopathy
CPT/HCPCS: 80053; 82140; 85025